=== PATIENT | female | born 1940 | race African-American/Black ===

== ENCOUNTER 2017-07-13 08:24 | Day surgery (SDC) | payer MEDICARE, OTHER ==
[~2017-07-13] VITALS: Ht 165.1 cm; Wt 81.8 kg
[2017-07-13] VITALS (7 sets, daily range): BP systolic 98–142; BP diastolic 52–81; PULSE 60–88; RESP 16–20; TEMP 95.4–98.1; O2SAT 94–97
[~2017-07-13 08:24] MED LIST: ADVAI250I INH; AMLO10 PO; CETI-1; IPRASOL INH; LEVA750T9 PO; MELA5 PO; METO25TA3 PO; MILKSUS PO; RISP0.5T25 PO; SYMB160A INH
[2017-07-13] MEDS ORDERED: IOHEXOL 350 MG/ML 50 ML BTL (for RAD DIAG) G-TUBE ONE (08:25)
[2017-07-13] MEDS ORDERED: ceFAZolin 2 GM PREMIX 50 ML - gastrostomy and jejunostomy initial insertion IV SCH (08:45)
[2017-07-13] MEDS ORDERED: GLUCAGON 1 MG/ML VIAL ONE (09:37)
[2017-07-13] MEDS ORDERED: MIDAZOLAM HCL 2 MG/2 ML VIAL ONE (09:37)
--- NOTE | 2017-07-13 11:08 | RADRPT ---
EXAM DATE/TIME: 07/13/2017 10:50 [facility] COMPARISON: No previous studies available for comparison. INDICATIONS : Patient with history of dysphagia in need of G-tube placement. MEDICAL HISTORY : HTN, Acute renal failure, Diabetes, Sepsis, COPD, Gout, Alzheimers SURGICAL HISTORY : None ENCOUNTER: Initial ACUITY: 3 months PAIN SCORE: 0/10 FLUORO TIME: 3.9 minutes IMAGE SERIES: 1 SEDATION TIME: 30 minutes CONTRAST: 20 cc Omnipaque (iohexol) 350 MEDICATION(S): 1.) 3 mg midazolam (Versed) IV 2.) 150 mcg Fentanyl (Sublimaze) IV 3.) 1 mg glucagon (Gluca-Gen) IV Prophylactic antibiotics were administered with appropriate pre-procedure timing. Vancomycin within 2 hours of procedure, Ancef (or alternative) within 1 hour of procedure. DEVICE(S): 1.) 18 Fr gastrostomy tube PROCEDURE : 1. Limited abdominal ultrasound. 2. Fluoroscopically guided gastrostomy tube placement. 3. Conscious sedation with continuous EKG and oximetry monitoring. The risks, benefits and alternatives to the procedure were explained and verbal and written consent w as obtained. The site was prepped in sterile fashion. Full sterile technique was used, including ca p, mask, sterile gloves and gown and a large sterile sheet. Hand hygiene and 2% chlorhexidine and/or betadine/alcohol prep was utilized per protocol for cutaneous antisepsis. The skin and subcutaneous tissues were infiltrated with local anesthetic solution. Sterile gel and sterile probe cover were u tilized for ultrasound guidance. Ultrasound was used to marty the position of the liver. The stomach was insufflated with room air. Th ree percutaneous fasteners were placed to secure the anterior gastric wall. A small incision was made between the fasteners. The stomach was accessed with an 18 gauge needle. A n 0.035 wire was advanced into the small bowel. The tract was dilated. The gastrostomy tube was int roduced through a peel-away sheath. The position was confirmed with an injection of contrast. Conscious sedation was performed with the prescribed dosages and duration as above in the presence of an independent trained radiology nurse to assist in the monitoring of the patient. EKG and oximetry remained stable throughout the procedure. The patient tolerated the procedure well and there were n o complications. The patient was sent to post anesthesia recovery in stable condition. CONCLUSION: Uncomplicated gastrostomy tube placement as above. Mark Felix MD on July 13, 2017 at 11:03 Board Certified Radiologist. This report was verified electronically.
--- NOTE | 2017-07-13 12:35 | PD.RAD ---
Post Procedure Progress Note Pre Procedure Diagnosis: (1) Dysphagia (2) Dementia Post Procedure Diagnosis: (1) Dysphagia (2) Dementia Procedure Date: Jul 13, 2017 Supervising Radiologist: Mark Felix Proceduralist/Assist: Antwan Lopez RT(R) Estimated blood loss: none Anesthesia: Local, Conscious Sedation Plan of Activity Patient to Unit: ROPU Patient Condition: Good See PACS Report for procedural detail/treatment Feeding Tube Gastrostomy Placement Moldovan: 18 Mark Felix MD Jul 13, 2017 12:35
== END 2017-07-13 13:00 ==
LOC: HROP 08:24 → HRIP 08:24 → HROP 13:00
PROVIDERS: ATTEND Family Medicine
DX: Z43.1 Encounter for attention to gastrostomy (principal); R13.10 Dysphagia, unspecified; F02.80 Dementia in other diseases classified elsewhere, unspecified severity, without behavioral disturbance, psychotic disturbance, mood disturbance, and anxiety; G30.9 Alzheimer's disease, unspecified; I10 Essential (primary) hypertension; J44.9 Chronic obstructive pulmonary disease, unspecified; E11.9 Type 2 diabetes mellitus without complications; Z79.84 Long term (current) use of oral hypoglycemic drugs
CPT/HCPCS: 49440; 99152; 99153; C1769; C1887; J0690; J1610; J2250; J3010; Q9967

== ENCOUNTER 2017-09-05 05:37 | Inpatient (IN) | payer MEDICARE, OTHER ==
[~2017-09-05] VITALS: Ht 172.7 cm; Wt 80.0 kg
[2017-09-05] VITALS (10 sets, daily range): BP systolic 121–144; BP diastolic 62–79; PULSE 87–102; RESP 17–22; TEMP 97.5–98.7; O2SAT 93–99
[~2017-09-05 05:37] MED LIST changes: -ADVAI250I INH; -LEVA750T9 PO
[2017-09-05] MEDS ORDERED: MELO7.5T27 PO (05:54)
[2017-09-05] MEDS ORDERED: AMLO10 PO (05:54)
[2017-09-05] MEDS ORDERED: SYMB160A INH (05:54)
[2017-09-05] MEDS ORDERED: COLL30T TOPICAL (05:54)
[2017-09-05] MEDS ORDERED: MULT-65 PO (05:54)
[2017-09-05] MEDS ORDERED: RESP: ALBUTEROL 2.5 MG/IPRATROPIUM 0.5 MG NEB (SCH) NEB ONE (06:00)
--- NOTE | 2017-09-05 06:33 | RADRPT ---
EXAM DATE/TIME: 09/05/2017 06:00 [facility] COMPARISON: CHEST SINGLE AP, June 23, 2017, 17:25. INDICATIONS : Shortness of breath. MEDICAL HISTORY : HTN, Acute renal failure, Diabetes, Sepsis, COPD, Gout, Alzheimers SURGICAL HISTORY : None. ENCOUNTER: Initial ACUITY: 1 day PAIN SCORE: 0/10 LOCATION: Bilateral chest FINDINGS: A single view of the chest demonstrates no focal consolidation or significant effusion. Heart size wi thin normal limits. Mildly tortuous aorta. CONCLUSION: 1. No acute findings. Resolution of previous right basilar airspace disease. Kevin Fonseca MD on September 05, 2017 at 6:31 Board Certified Radiologist. This report was verified electronically.
[2017-09-05] MEDS ORDERED: SODIUM CHLORIDE 0.9% FLUSH 10 ML FLUSH IVF PRN (07:30)
--- NOTE | 2017-09-05 07:37 | PD ---
HPI . 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 As per EMS, the G-tube was in the patient's bed. Unclear how long the G-tube was not in place. Patient is compos mentis, however she cannot comment on either. Patient does note that she takes breathing treatments regularly and is mildly short of breath and wheezing upon presentation. Patient denies any chest pain, fever chills sweats, productive cough, leg swelling. Patient has no abdominal pain nausea vomiting diarrhea. PFSH Past Medical History Narrative Medical Past medical history reviewed Alzheimer's Disease: Yes Cancer: No Cardiovascular Problems: Yes (HYPERTENSION) Congestive Heart Failure: No COPD: Yes Coronary Artery Disease: No Dementia: Yes Diabetes: Yes Patient Takes Glucophage: No Glaucoma: Yes Gout: Yes Hypertension: Yes Medical other: Yes (GOUT, SEPSIS) Neurologic: Yes (DEMENTIA) Psychiatric: No Reproductive: No Respiratory: Yes (COPD) Immunizations Current: No Tetanus Vaccination: Unknown Influenza Vaccination: Yes ?: Not Past Surgical History AICD: No Eye Surgery: Yes ( RIGHT EYELID) Joint Replacement: No Pacemaker: No Other Surgery: Yes (PEG TUBE) Social History Alcohol Use: No Tobacco Use: No Substance Use: No Allergies-Medications (Allergen,Severity, Reaction): Coded Allergies: No Known Allergies (Unverified Allergy, Unknown, 09/05/17) Reported Meds & Prescriptions Reported Meds & Active Scripts Active Reported Symbicort Inh (Budesonide/Formoterol Fumarate) 160-4.5 Mcg/Act Aero 1 Puff INH Q12HR Santyl Topical (Collagenase) 250 Unit/Gm Oint 1 Applic TOPICAL DAILY As instructed. Norvasc (Amlodipine Besylate) 10 Mg Tab 10 Mg PO DAILY Multi-Vitamin Daily (Multiple Vitamin) 1 Tab Tab 1 Tab PO DAILY Meloxicam 7.5 Mg Tab 7.5 Mg PO DAILY Zyrtec (Cetirizine HCl) 10 Mg Tablet Risperdal (Risperidone) 0.5 Mg Tab 0.5 Mg PO Q12HR Milk of Magnesia Liq (Magnesium Hydroxide) 400 Mg/5 Ml Susp 30 Ml PO DAILY PRN Metoprolol Tartrate 25 Mg Tab 12.5 Mg PO DAILY Melatonin 5 Mg Tab 3 Mg PO HS Duoneb (Ipratropium-Albuterol Neb) 0.5-2.5 Mg/3 Ml Neb 1 Nebule INH Q4HR NEB Narrative Medication Allergies and medications reviewed Review of Systems Except as stated in HPI: all other systems reviewed are Neg General / Constitutional: No: Fever Eyes: No: Visual changes HENT: No: Headaches Cardiovascular: No: Chest Pain or Discomfort Respiratory: Positive: Shortness of Breath, Wheezing, No: Cough, Sneezing, Orthopnea, Hemoptysis, Stridor Gastrointestinal: No: Abdominal Pain Genitourinary: No: Dysuria Musculoskeletal: No: Pain Skin: No Rash Neurologic: No: Weakness Psychiatric: No: Depression Endocrine: No: Polydipsia Hematologic/Lymphatic: No: Easy Bruising Physical Exam Narrative GENERAL: Awake and alert oriented 3 no acute distress. Oxygen saturation 9496 % on room air. SKIN: Warm and dry. Color is normal no diaphoresis cyanosis or pallor HEAD: Atraumatic. Normocephalic. EYES: Pupils equal and round. No scleral icterus. No injection or drainage. ENT: No nasal bleeding or discharge. Mucous membranes pink and moist. NECK: Trachea midline. No JVD. Supple nontender full range of motion CARDIOVASCULAR: Regular rate and rhythm. RESPIRATORY: No accessory muscle use. Clear to auscultation. Breath sounds equal bilaterally. GASTROINTESTINAL: Abdomen soft, non-tender, nondistended. Hepatic and splenic margins not palpable. G-tube stoma evident. No bleeding MUSCULOSKELETAL: Extremities without clubbing, cyanosis, or edema. No obvious deformities. NEUROLOGICAL: Awake and alert. No obvious gross focal deficits PSYCHIATRIC: Appropriate mood and affect; insight and judgment normal. Data Data Last Documented VS Vital Signs Date Time Temp Pulse Resp B/P (MAP) Pulse Ox O2 Delivery O2 Flow Rate FiO2 09/05/17 06:53 94 Nasal Cannula 2.00 09/05/17 05:49 70 22 09/05/17 05:43 98.7 144/79 (100) Orders Orders Albuterol-Ipratropium Neb (Duoneb Neb) (09/05/17 06:00) Chest, Single Ap (09/05/17 ) Complete Blood Count With Diff (09/05/17 07:27) Comprehensive Metabolic Panel (09/05/17 07:27) Troponin I (09/05/17 07:27) Urinalysis - C+S If Indicated (09/05/17 07:27) Electrocardiogram (09/05/17 07:27) Ecg Monitoring (09/05/17 07:27) Oximetry (09/05/17 07:27) Oxygen Administration (09/05/17 07:27) Sodium Chloride 0.9% Flush (Ns Flush) (09/05/17 07:30) MDM Medical Decision Making Medical Screen Exam Complete: Yes Emergency Medical Condition: Yes Medical Record Reviewed: Yes Differential Diagnosis PEG tube traumatically removed. COPD Narrative Course Attempted replacement of PEG tube with 14 Dunham catheter. Stoma is obviously patent. Unable to pass. Patient given albuterol Atrovent nebulized treatment for her usual COPD. patient notes improvement with same. Patient is pending laboratory evaluations. Patient will need to be admitted for observation status consultation from gastroenterology for replacement of PEG tube. Case signed out to oncoming ED attending Dr. Kobi Piña pending laboratory examinations admission. Diagnosis Primary Impression: Malfunction of percutaneous endoscopic gastrostomy (PEG) tube Additional Impression: COPD with exacerbation Admitting Information Admitting Physician Requests: Observation Jose Armando Ramos MD Sep 05, 2017 07:37
[2017-09-05 07:55] LABS: BASOPHIL # 0.1 TH/MM3 (0-0.2); BASOPHIL % 0.8 % (0.0-2.0); EOSINOPHIL # 0.6 TH/MM3 (0-0.4); EOSINOPHIL % 5.1 % (0.0-4.0); HEMATOCRIT 31.5 % (35.0-46.0); HEMOGLOBIN 9.7 GM/DL (11.6-15.3); LYMPH % 13.1 % (9.0-44.0); LYMPHOCYTE # 1.6 TH/MM3 (1.0-4.8); MEAN CELL VOLUME 85.7 FL (80.0-100.0); MEAN CORPUSCULAR HEMOGLOBIN 26.4 PG (27.0-34.0); MEAN CORPUSCULAR HGB CONC 30.8 % (32.0-36.0); MEAN PLATELET VOLUME 8.4 FL (7.0-11.0); MONO % 4.9 % (0.0-8.0); MONOCYTE # 0.6 TH/MM3 (0-0.9); NEUT % 76.1 % (16.0-70.0); PLATELET COUNT 371 TH/MM3 (150-450); RED BLOOD COUNT 3.68 MIL/MM3 (4.00-5.30); RED CELL DISTRIBUTION WIDTH 23.7 % (11.6-17.2); WHITE BLOOD COUNT 11.8 TH/MM3 (4.0-11.0)
[2017-09-05 08:08] LABS: ALBUMIN 2.9 GM/DL (3.4-5.0); AST (GOT) 11 U/L (15-37); BICARBONATE 33.1 MEQ/L (21.0-32.0); BLOOD UREA NITROGEN 38 MG/DL (7-18); CALCIUM 8.9 MG/DL (8.5-10.1); CHLORIDE 103 MEQ/L (98-107); CREATININE 0.97 MG/DL (0.50-1.00); GLOMERULAR FILTRATION RATE 68 ML/MIN (>89); GLUCOSE,RANDOM 118 MG/DL (74-106); SODIUM (NA) 143 MEQ/L (136-145)
[2017-09-05 08:09] LABS: ALT (GPT) 10 U/L (10-53)
[2017-09-05 08:13] LABS: ALKALINE PHOSPHATASE 106 U/L (45-117); TOTAL BILIRUBIN ADULT 0.1 MG/DL (0.2-1.0); TOTAL PROTEIN 7.6 GM/DL (6.4-8.2); TROPONIN I LESS THAN 0.02 NG/ML (0.02-0.05)
[2017-09-05 08:42] LABS: AMORPHOUS SEDIMENT, URINE FEW; BILIRUBIN, URINE NEG (NEG); BLOOD, URINE NEG (NEG); GLUCOSE,URINE NEG (NEG); KETONE, URINE NEG (NEG); NITRITE,URINE NEG (NEG); TRANSITIONAL EPI CELLS, URINE <1 /hpf; URINE COLOR YELLOW (YELLW/STRAW); URINE LEUKOCYTE ESTERASE LARGE (NEG)
--- NOTE | 2017-09-05 08:58 | PD ---
Data Data Last Documented VS Vital Signs Date Time Temp Pulse Resp B/P (MAP) Pulse Ox O2 Delivery O2 Flow Rate FiO2 09/05/17 08:16 92 17 136/62 (86) 95 Nasal Cannula 2.00 09/05/17 05:43 98.7 Orders Orders Albuterol-Ipratropium Neb (Duoneb Neb) (09/05/17 06:00) Chest, Single Ap (09/05/17 ) Complete Blood Count With Diff (09/05/17 07:27) Comprehensive Metabolic Panel (09/05/17 07:27) Troponin I (09/05/17 07:27) Urinalysis - C+S If Indicated (09/05/17 07:27) Electrocardiogram (09/05/17 07:27) Ecg Monitoring (09/05/17 07:27) Oximetry (09/05/17 07:27) Oxygen Administration (09/05/17 07:27) Sodium Chloride 0.9% Flush (Ns Flush) (09/05/17 07:30) Urine Culture (09/05/17 07:59) Admit Order (Ed Use Only) (09/05/17 09:41) Labs Laboratory Tests Test 09/05/17 07:42 09/05/17 07:59 White Blood Count 11.8 TH/MM3 Red Blood Count 3.68 MIL/MM3 Hemoglobin 9.7 GM/DL Hematocrit 31.5 % Mean Corpuscular Volume 85.7 FL Mean Corpuscular Hemoglobin 26.4 PG Mean Corpuscular Hemoglobin Concent 30.8 % Red Cell Distribution Width 23.7 % Platelet Count 371 TH/MM3 Mean Platelet Volume 8.4 FL Neutrophils (%) (Auto) 76.1 % Lymphocytes (%) (Auto) 13.1 % Monocytes (%) (Auto) 4.9 % Eosinophils (%) (Auto) 5.1 % Basophils (%) (Auto) 0.8 % Neutrophils # (Auto) 9.0 TH/MM3 Lymphocytes # (Auto) 1.6 TH/MM3 Monocytes # (Auto) 0.6 TH/MM3 Eosinophils # (Auto) 0.6 TH/MM3 Basophils # (Auto) 0.1 TH/MM3 CBC Comment DIFF FINAL Differential Comment Blood Urea Nitrogen 38 MG/DL Creatinine 0.97 MG/DL Random Glucose 118 MG/DL Total Protein 7.6 GM/DL Albumin 2.9 GM/DL Calcium Level 8.9 MG/DL Alkaline Phosphatase 106 U/L Aspartate Amino Transf (AST/SGOT) 11 U/L Alanine Aminotransferase (ALT/SGPT) 10 U/L Total Bilirubin 0.1 MG/DL Sodium Level 143 MEQ/L Potassium Level 4.5 MEQ/L Chloride Level 103 MEQ/L Carbon Dioxide Level 33.1 MEQ/L Anion Gap 7 MEQ/L Estimat Glomerular Filtration Rate 68 ML/MIN Troponin I LESS THAN 0.02 NG/ML Urine Color YELLOW Urine Turbidity CLEAR Urine pH 8.0 Urine Specific [place] 1.015 Urine Protein TRACE mg/dL Urine Glucose (UA) NEG mg/dL Urine Ketones NEG mg/dL Urine Occult Blood NEG Urine Nitrite NEG Urine Bilirubin NEG Urine Urobilinogen LESS THAN 2.0 MG/DL Urine Leukocyte Esterase LARGE Urine RBC LESS THAN 1 /hpf Urine WBC 12 /hpf Urine Transitional Epithelial Cells <1 /hpf Urine Amorphous Sediment FEW Microscopic Urinalysis Comment CATH-CULTURE IND MDM Medical Record Reviewed: Yes Supervised Visit with KYRA: No Narrative Course CBC & BMP Diagram 09/05/17 07:42 Total Protein 7.6, Albumin 2.9 L, Calcium Level 8.9, Alkaline Phosphatase 106, Aspartate Amino Transf (AST/SGOT) 11 L, Alanine Aminotransferase (ALT/SGPT) 10, Total Bilirubin 0.1 L Urinalysis shows leukocyte esterase and WBCs The gastric tube is not amenable to bedside reinsertion Patient is in no acute distress. Interventional Radiology called at 855AM Case discussed with interventional radiology at about 9:15 AM who is aware of patient and condition, stable, will need Gtube replaced. Bedside attempt at replacement by the undersigned performed fair amount of pressure was applied with 3 nurses in the room helping to restrain the patient who was minimally uncomfortable. About 1-1-1/2 cm or so of the gastric tube was advanced however further advancement was unsuccessful. d/w Dr López at 1043AM Diagnosis Primary Impression: Malfunction of percutaneous endoscopic gastrostomy (PEG) tube Additional Impression: COPD with exacerbation Admitting Information Admitting Physician Requests: Observation Kobi Piña MD Sep 05, 2017 08:58
[2017-09-05] MEDS ORDERED: MIDAZOLAM HCL 2 MG/2 ML VIAL IV ONE (09:43)
[2017-09-05] MEDS ORDERED: IOHEXOL 350 MG/ML 50 ML BTL (for RAD DIAG) G-TUBE ONE (09:43)
[2017-09-05] MEDS: D5-1/2 NS + KCL 20 MEQ INJ 1,000 ML IV SCH ×2 (10:44→20:44)
[2017-09-05] MEDS ORDERED: SENNOSIDES 8.6 MG TAB PO PRN (10:45)
[2017-09-05] MEDS ORDERED: BISACODYL 10 MG SUPP RECTAL PRN (10:45)
[2017-09-05] MEDS ORDERED: SODIUM CHLORIDE 0.9% FLUSH 10 ML FLUSH IV FLUSH PRN (10:45)
[2017-09-05] MEDS ORDERED: MAGNESIUM HYDROXIDE SUSP 30 ML CUP PO PRN (10:45)
[2017-09-05] MEDS ORDERED: ONDANSETRON HCL 4 MG/2 ML VIAL IVP PRN (10:45)
[2017-09-05] MEDS ORDERED: NALOXONE HCL 0.4 MG/ML AMP IV PUSH PRN (10:45)
[2017-09-05] MEDS ORDERED: LACTULOSE SYRUP 20 GM/30 ML CUP PO PRN (10:45)
[2017-09-05] MEDS ORDERED: PILL SPLITTER OTHER PRN (11:30)
--- NOTE | 2017-09-05 11:42 | PD.CONS ---
HPI History of Present Illness This is a 77 year old female with dementia who presented from [facility] for dislodged G tube. Attempt was made to replace tube in ER but resistance was met, per records. SEarch of records shows g tube was placed by IR 06/2017. pt relatively noncontributory other than to say tube was removed "with my hands." She denies abd pain, seems comfortable. (Jael Duong) PFSH Past Medical History dementia HTN COPD Past Surgical History right eye surgery g tube placement (Jael Duong) Coded Allergies: No Known Allergies (Unverified Allergy, Unknown, 09/05/17) Family History noncontributory Social History noncontributory (Jael Duong) Review of Systems noncontributory (Jael Duong) GI Exam Vitals I&O Vital Signs Date Time Temp Pulse Resp B/P (MAP) Pulse Ox O2 Delivery O2 Flow Rate FiO2 09/05/17 11:37 96 17 127/62 (83) 95 Nasal Cannula 2.00 09/05/17 10:07 96 18 127/62 (83) 97 Nasal Cannula 2.00 09/05/17 08:16 92 17 136/62 (86) 95 Nasal Cannula 2.00 09/05/17 08:16 98 17 95 Nasal Cannula 2.00 09/05/17 07:31 98 17 136/62 (86) 96 Nasal Cannula 2.00 09/05/17 07:31 96 Nasal Cannula 2.00 09/05/17 06:53 94 Nasal Cannula 2.00 09/05/17 05:49 70 22 93 Room Air 09/05/17 05:43 98.7 101 22 144/79 (100) 93 Imaging Last Impressions Chest X-Ray 09/05/17 0000 Signed Impressions: Service Date/Time: Tuesday, September 05, 2017 06:00 - CONCLUSION: 1. No acute findings. Resolution of previous right basilar airspace disease. Kevin Fonseca MD Laboratory Test 09/05/17 07:42 09/05/17 07:59 White Blood Count 11.8 TH/MM3 Red Blood Count 3.68 MIL/MM3 Hemoglobin 9.7 GM/DL Hematocrit 31.5 % Mean Corpuscular Volume 85.7 FL Mean Corpuscular Hemoglobin 26.4 PG Mean Corpuscular Hemoglobin Concent 30.8 % Red Cell Distribution Width 23.7 % Platelet Count 371 TH/MM3 Mean Platelet Volume 8.4 FL Neutrophils (%) (Auto) 76.1 % Lymphocytes (%) (Auto) 13.1 % Monocytes (%) (Auto) 4.9 % Eosinophils (%) (Auto) 5.1 % Basophils (%) (Auto) 0.8 % Neutrophils # (Auto) 9.0 TH/MM3 Lymphocytes # (Auto) 1.6 TH/MM3 Monocytes # (Auto) 0.6 TH/MM3 Eosinophils # (Auto) 0.6 TH/MM3 Basophils # (Auto) 0.1 TH/MM3 CBC Comment DIFF FINAL Differential Comment Blood Urea Nitrogen 38 MG/DL Creatinine 0.97 MG/DL Random Glucose 118 MG/DL Total Protein 7.6 GM/DL Albumin 2.9 GM/DL Calcium Level 8.9 MG/DL Alkaline Phosphatase 106 U/L Aspartate Amino Transf (AST/SGOT) 11 U/L Alanine Aminotransferase (ALT/SGPT) 10 U/L Total Bilirubin 0.1 MG/DL Sodium Level 143 MEQ/L Potassium Level 4.5 MEQ/L Chloride Level 103 MEQ/L Carbon Dioxide Level 33.1 MEQ/L Anion Gap 7 MEQ/L Estimat Glomerular Filtration Rate 68 ML/MIN Troponin I LESS THAN 0.02 NG/ML Urine Color YELLOW Urine Turbidity CLEAR Urine pH 8.0 Urine Specific [place] 1.015 Urine Protein TRACE mg/dL Urine Glucose (UA) NEG mg/dL Urine Ketones NEG mg/dL Urine Occult Blood NEG Urine Nitrite NEG Urine Bilirubin NEG Urine Urobilinogen LESS THAN 2.0 MG/DL Urine Leukocyte Esterase LARGE Urine RBC LESS THAN 1 /hpf Urine WBC 12 /hpf Urine Transitional Epithelial Cells <1 /hpf Urine Amorphous Sediment FEW Microscopic Urinalysis Comment CATH-CULTURE IND Date/Time Source Procedure Growth Status 09/05/17 07:59 Urine Clean Catch Urine Culture Pending Received Physical Examination HEENT: right eyelid stuck shut, left pupil dilated; normocephalic; atraumatic; CHEST: coarse CARDIAC: RRR ABDOMEN: Soft, nondistended, nontender; no hepatosplenomegaly; bowel sounds are present in all four quadrants. g tube site with small amt blood EXTREMITIES: No clubbing, cyanosis, or edema. SKIN: Normal; no rash; no jaundice. PUTTY MAKER: alert, nonverbal (Jael Duong) Assessment and Plan Plan ASSESSMENT - dysphagia, dislodged g tube - [facility] , appears she may have pulled it out. no further details records show IR placed g tube 06/2017 PLAN - consult IR for g tube replacement - supportive care - GI will sign off, please reconsult if needed pt seen by myself and Dr Maddison reynaga this note is written on her behalf (Jael Duong) Physician Comments seen, examined agree with above consider speech therapy eval-she is eating also but not enough to support her calorie demands gi will sign off call us as needed (Emily Jackson MD) Jael Duong Sep 05, 2017 11:42 Emily Jackson MD Sep 05, 2017 16:46
[2017-09-05] MEDS ORDERED: HEPARIN SODIUM - SQ 10,000 UNITS/ML VIAL SQ SCH (12:00)
[2017-09-05] MEDS: RESP: ALBUTEROL 2.5 MG/IPRATROPIUM 0.5 MG NEB (SCH) INH ×4 (13:07→23:06)
--- NOTE | 2017-09-05 13:53 | HHI.HP ---
[facility] Noman Yu MD Admission Diagnosis GTube Dislodged Diagnoses: Travel History International Travel<30 Days: No Contact w/Intl Traveler <30 Da: No Traveled to Known Affected Are: No History of Present Illness Patient is a pleasant but severely demented 77-year-old female with history of hypertension, COPD, dysphagia, status post PEG tube placement who was found to have PEG tube accidentally removed overnight. Unable to be placed in the ER. History is limited by severe dementia. Patient appears comfortable, speaks pleasantly, smiles, however her answers have absolutely nothing to do with questions. Review of Systems Attempted but severely limited secondary to severe dementia. Past Family Social History Past Medical History Hypertension Sleep disturbance Allergies COPD Severe dementia Gout History of UTI. Past Surgical History PEG tube placement June 2017 [place]ary 2 dysphagia. Right eyelid surgery Reported Medications Reported Meds & Active Scripts Active Reported Symbicort Inh (Budesonide/Formoterol Fumarate) 160-4.5 Mcg/Act Aero 1 Puff INH Q12HR Santyl Topical (Collagenase) 250 Unit/Gm Oint 1 Applic TOPICAL DAILY As instructed. Norvasc (Amlodipine Besylate) 10 Mg Tab 10 Mg PO DAILY Multi-Vitamin Daily (Multiple Vitamin) 1 Tab Tab 1 Tab PO DAILY Meloxicam 7.5 Mg Tab 7.5 Mg PO DAILY Zyrtec (Cetirizine HCl) 10 Mg Tablet Risperdal (Risperidone) 0.5 Mg Tab 0.5 Mg PO Q12HR Milk of Magnesia Liq (Magnesium Hydroxide) 400 Mg/5 Ml Susp 30 Ml PO DAILY PRN Metoprolol Tartrate 25 Mg Tab 12.5 Mg PO DAILY Melatonin 5 Mg Tab 3 Mg PO HS Duoneb (Ipratropium-Albuterol Neb) 0.5-2.5 Mg/3 Ml Neb 1 Nebule INH Q4HR NEB Allergies: Coded Allergies: No Known Allergies (Unverified Allergy, Unknown, 09/05/17) Family History Attempted, but patient is unable to answer family history. Social History Patient appears to be a current non-smoker, nondrinker. Unknown past history. Current [facility] patient. Physical Exam Vital Signs Vital Signs Date Time Temp Pulse Resp B/P (MAP) Pulse Ox O2 Delivery O2 Flow Rate FiO2 09/05/17 11:52 97.5 88 18 142/68 (92) 97 09/05/17 11:37 96 17 127/62 (83) 95 Nasal Cannula 2.00 09/05/17 10:07 96 18 127/62 (83) 97 Nasal Cannula 2.00 09/05/17 08:16 92 17 136/62 (86) 95 Nasal Cannula 2.00 09/05/17 08:16 98 17 95 Nasal Cannula 2.00 09/05/17 07:31 98 17 136/62 (86) 96 Nasal Cannula 2.00 09/05/17 07:31 96 Nasal Cannula 2.00 09/05/17 06:53 94 Nasal Cannula 2.00 09/05/17 05:49 70 22 93 Room Air 09/05/17 05:43 98.7 101 22 144/79 (100) 93 Physical Exam GENERAL: This is a well-nourished, well-developed patient, in no apparent distress. Pleasant, disoriented. SKIN: No rashes, ecchymoses or lesions. Cool and dry. HEAD: Atraumatic. Normocephalic. No temporal or scalp tenderness. EYES: Pupils equal round and reactive. Extraocular motions intact. No scleral icterus. No injection or drainage. ENT: Nose without bleeding, purulent drainage or septal hematoma. Throat without erythema, tonsillar hypertrophy or exudate. Uvula midline. Airway patent. NECK: Trachea midline. No JVD or lymphadenopathy. Supple, nontender, no meningeal signs. CARDIOVASCULAR: Regular rate and rhythm without murmurs, gallops, or rubs. RESPIRATORY: Clear to auscultation. Breath sounds equal bilaterally. No wheezes , rales, or rhonchi. GASTROINTESTINAL: Abdomen soft, non-tender, nondistended. No hepato-splenomegaly , or palpable masses. No guarding. PEG tube site left upper quadrant with slight serous drainage. No surrounding erythema. No pus. MUSCULOSKELETAL: Extremities without clubbing, cyanosis, or edema. No joint tenderness, effusion, or edema noted. No calf tenderness. Negative Homans sign bilaterally. NEUROLOGICAL: Awake and alert. Cranial nerves II through XII intact. Motor and sensory grossly within normal limits. Five out of 5 muscle strength in all muscle groups. Normal speech. Laboratory Laboratory Tests Test 09/05/17 07:42 09/05/17 07:59 White Blood Count 11.8 Red Blood Count 3.68 Hemoglobin 9.7 Hematocrit 31.5 Mean Corpuscular Volume 85.7 Mean Corpuscular Hemoglobin 26.4 Mean Corpuscular Hemoglobin Concent 30.8 Red Cell Distribution Width 23.7 Platelet Count 371 Mean Platelet Volume 8.4 Neutrophils (%) (Auto) 76.1 Lymphocytes (%) (Auto) 13.1 Monocytes (%) (Auto) 4.9 Eosinophils (%) (Auto) 5.1 Basophils (%) (Auto) 0.8 Neutrophils # (Auto) 9.0 Lymphocytes # (Auto) 1.6 Monocytes # (Auto) 0.6 Eosinophils # (Auto) 0.6 Basophils # (Auto) 0.1 CBC Comment DIFF FINAL Differential Comment Blood Urea Nitrogen 38 Creatinine 0.97 Random Glucose 118 Total Protein 7.6 Albumin 2.9 Calcium Level 8.9 Alkaline Phosphatase 106 Aspartate Amino Transf (AST/SGOT) 11 Alanine Aminotransferase (ALT/SGPT) 10 Total Bilirubin 0.1 Sodium Level 143 Potassium Level 4.5 Chloride Level 103 Carbon Dioxide Level 33.1 Anion Gap 7 Estimat Glomerular Filtration Rate 68 Troponin I LESS THAN 0.02 Urine Color YELLOW Urine Turbidity CLEAR Urine pH 8.0 Urine Specific [place] 1.015 Urine Protein TRACE Urine Glucose (UA) NEG Urine Ketones NEG Urine Occult Blood NEG Urine Nitrite NEG Urine Bilirubin NEG Urine Urobilinogen LESS THAN 2.0 Urine Leukocyte Esterase LARGE Urine RBC LESS THAN 1 Urine WBC 12 Urine Transitional Epithelial Cells <1 Urine Amorphous Sediment FEW Microscopic Urinalysis Comment CATH-CULTURE IND Date/Time Source Procedure Growth Status 09/05/17 07:59 Urine Clean Catch Urine Culture Pending Received Result Diagram: 09/05/17 0742 09/05/17 0742 Imaging Last Impressions Chest X-Ray 09/05/17 0000 Signed Impressions: Service Date/Time: Tuesday, September 05, 2017 06:00 - CONCLUSION: 1. No acute findings. Resolution of previous right basilar airspace disease. MD Elle Harris VTE Risk Assessment Caprini VTE Risk Assessment: Mod/High Risk (score >= 2) Caprini Risk Assessment Model Point Value = 1 Point Value = 2 Point Value = 3 Point Value = 5 Age 41-60 Minor surgery BMI > 25 kg/m2 Swollen legs Varicose veins or History of unexplained or recurrent spontaneous Oral contraceptives or hormone replacement Sepsis (< 1 month) Serious lung disease, including pneumonia (< 1 month) Abnormal pulmonary function Acute myocardial infarction Congestive heart failure (< 1 month) History of inflammatory bowel disease Medical patient at bed rest Age 61-74 Arthroscopic surgery Major open surgery (> 45 min) Laparoscopic surgery (> 45 min) Malignancy Confined to bed (> 72 hours) Immobilizing plaster cast Central venous access Age >= 75 History of VTE Family history of VTE Factor V Leiden Prothrombin 50301T Lupus anticoagulant Anticardiolipin antibodies Elevated serum homocysteine Heparin-induced thrombocytopenia Other congenital or acquired thrombophilia Stroke (< 1 month) Elective arthroplasty Hip, pelvis, or leg fracture Acute spinal cord injury (< 1 month) Prophylaxis Regimen Total Risk Factor Score Risk Level Prophylaxis Regimen 0-1 Low Early ambulation 2 Moderate Order ONE of the following: *Sequential Compression Device (SCD) *Heparin 5000 units SQ BID 3-4 Higher Order ONE of the following medications: *Heparin 5000 units SQ TID *Enoxaparin/Lovenox 40 mg SQ daily (WT < 150 kg, CrCl > 30 mL/min) *Enoxaparin/Lovenox 30 mg SQ daily (WT < 150 kg, CrCl > 10-29 mL/min) *Enoxaparin/Lovenox 30 mg SQ BID (WT < 150 kg, CrCl > 30 mL/min) AND/OR *Sequential Compression Device (SCD) 5 or more Highest Order ONE of the following medications: *Heparin 5000 units SQ TID (Preferred with Epidurals) *Enoxaparin/Lovenox 40 mg SQ daily (WT < 150 kg, CrCl > 30 mL/min) *Enoxaparin/Lovenox 30 mg SQ daily (WT < 150 kg, CrCl > 10-29 mL/min) *Enoxaparin/Lovenox 30 mg SQ BID (WT < 150 kg, CrCl > 30 mL/min) AND *Sequential Compression Device (SCD) Assessment and Plan Assessment and Plan //Dysphagia //PEG tube having been inadvertently removed = IV fluids for now. = P.o. meds for now. = Consult IR for replacement. //COPD = Continue duo nebs as needed. Not in acute exacerbation //Hypertension = Blood pressure acceptable. Will hold off on amlodipine currently. // glaucoma = Continue eyedrops //Chronic anemia. Hemoglobin 9.7. Better than baseline. Dementia. -Appears to be stable. Continue chronic medications. Discussed Condition With nurse, ED physician Samy López MD Sep 05, 2017 13:53
[2017-09-05] MEDS: BUDESONIDE-FORMOTEROL 160/4.5 MCG INHALER INH SCH (21:00)
[2017-09-05] MEDS: SODIUM CHLORIDE 0.9% FLUSH 10 ML FLUSH IV FLUSH SCH (21:00)
[2017-09-05] MEDS: risperiDONE 0.5 MG TAB PO SCH (21:00)
[2017-09-05] MEDS: MELATONIN 5 MG TAB PO SCH (21:57)
[2017-09-05] MEDS: METOPROLOL TARTRATE 25 MG TAB PO SCH (21:57)
[2017-09-06] VITALS (10 sets, daily range): BP systolic 121–155; BP diastolic 60–71; PULSE 88–97; RESP 16–20; TEMP 97.4–98.9; O2SAT 92–99
[2017-09-06] MEDS: RESP: ALBUTEROL 2.5 MG/IPRATROPIUM 0.5 MG NEB (SCH) INH ×5 (03:52→21:36)
[2017-09-06 04:04] LABS: AUTOMATED NEUTROPHIL # 7.1 TH/MM3 (1.8-7.7); BASOPHIL # 0.1 TH/MM3 (0-0.2); BASOPHIL % 1.3 % (0.0-2.0); EOSINOPHIL # 0.7 TH/MM3 (0-0.4); EOSINOPHIL % 6.8 % (0.0-4.0); HEMATOCRIT 30.9 % (35.0-46.0); HEMOGLOBIN 9.7 GM/DL (11.6-15.3); LYMPH % 19.2 % (9.0-44.0); MEAN CELL VOLUME 86.1 FL (80.0-100.0); MEAN CORPUSCULAR HEMOGLOBIN 26.9 PG (27.0-34.0); MEAN CORPUSCULAR HGB CONC 31.3 % (32.0-36.0); MEAN PLATELET VOLUME 8.6 FL (7.0-11.0); MONO % 5.4 % (0.0-8.0); MONOCYTE # 0.6 TH/MM3 (0-0.9); NEUT % 67.3 % (16.0-70.0); PLATELET COUNT 381 TH/MM3 (150-450); RED BLOOD COUNT 3.59 MIL/MM3 (4.00-5.30); RED CELL DISTRIBUTION WIDTH 23.5 % (11.6-17.2); WHITE BLOOD COUNT 10.6 TH/MM3 (4.0-11.0)
[2017-09-06 04:33] LABS: AST (GOT) 14 U/L (15-37); BICARBONATE 32.9 MEQ/L (21.0-32.0); BLOOD UREA NITROGEN 30 MG/DL (7-18); CALCIUM 8.9 MG/DL (8.5-10.1); CHLORIDE 103 MEQ/L (98-107); CREATININE 1.03 MG/DL (0.50-1.00); GLOMERULAR FILTRATION RATE 63 ML/MIN (>89); GLUCOSE,RANDOM 99 MG/DL (74-106); SODIUM (NA) 142 MEQ/L (136-145)
[2017-09-06 04:34] LABS: ALT (GPT) 10 U/L (10-53)
[2017-09-06 04:36] LABS: ALKALINE PHOSPHATASE 104 U/L (45-117); TOTAL BILIRUBIN ADULT 0.2 MG/DL (0.2-1.0); TOTAL PROTEIN 7.7 GM/DL (6.4-8.2)
[2017-09-06] MEDS: risperiDONE 0.5 MG TAB PO SCH ×2 (09:00→20:36)
[2017-09-06] MEDS: SODIUM CHLORIDE 0.9% FLUSH 10 ML FLUSH IV FLUSH SCH ×2 (09:00→21:00)
[2017-09-06] MEDS: METOPROLOL TARTRATE 25 MG TAB PO SCH ×2 (09:00→20:34)
[2017-09-06] MEDS ORDERED: RESP: ALBUTEROL 2.5 MG/IPRATROPIUM 0.5 MG NEB (SCH) NEB ONE (09:15)
--- NOTE | 2017-09-06 09:20 | HHI.PR ---
Subjective Remarks Patient indicates that she is feeling all right today. Otherwise answers are irrelevant to questions. Objective Vital Signs Date Time Temp Pulse Resp B/P (MAP) Pulse Ox O2 Delivery O2 Flow Rate FiO2 09/06/17 07:37 98.7 94 18 155/70 (98) 95 09/06/17 03:49 98.9 97 20 121/60 (80) 96 09/05/17 23:12 98.6 87 20 121/64 (83) 94 09/05/17 19:23 97.6 102 20 139/74 (95) 99 09/05/17 15:51 98.0 91 18 141/73 (95) 98 09/05/17 11:52 97.5 88 18 142/68 (92) 97 09/05/17 11:37 96 17 127/62 (83) 95 Nasal Cannula 2.00 09/05/17 10:07 96 18 127/62 (83) 97 Nasal Cannula 2.00 I/O 09/05/17 09/05/17 09/05/17 09/06/17 09/06/17 09/06/17 07:00 15:00 23:00 07:00 15:00 23:00 # Voids 3 1 # Bowel Movements 1 Result Diagram: 09/06/17 0326 09/06/17 0326 Objective Remarks GENERAL: Patient sitting up in bed. Appears comfortable. Confused as before. Pleasant however. SKIN: Warm and dry. HEAD: Normocephalic. EYES: No scleral icterus. No injection or drainage. NECK: Supple, trachea midline. No JVD. CARDIOVASCULAR: Regular rate and rhythm without murmurs, gallops, or rubs. RESPIRATORY: Breath sounds equal bilaterally. No accessory muscle use. GASTROINTESTINAL: Abdomen soft, non-tender, nondistended. PEG tube site dressed , clean and dry. MUSCULOSKELETAL: No cyanosis, or edema. BACK: Nontender without obvious deformity. No CVA tenderness. A/P Assessment and Plan //Dysphagia //PEG tube having been inadvertently removed = IV fluids for now. = P.o. meds for now. = Consult IR for replacement. = 09/06. Pending INR. Appreciate IR assistance. //Some rhonchi and crackles. -09/06. This could be just morning atelectasis, however due to history of aspiration will check stat x-ray. Patient is only been receiving pills by mouth. N.p.o. for now. BNP ordered and pending //COPD = Continue duo nebs as needed. Not in acute exacerbation //Hypertension = Blood pressure acceptable. Will hold off on amlodipine currently. // glaucoma = Continue eyedrops //Chronic anemia. Hemoglobin 9.7. Better than baseline. Dementia. -Appears to be stable. Continue chronic medications. Discharge Planning PEG tube placement today. After this, if chest x-ray is okay, patient can be discharged back to SNF. Samy López MD Sep 06, 2017 09:19
--- NOTE | 2017-09-06 09:32 | RADRPT ---
EXAM DATE/TIME: 09/06/2017 09:22 [facility] COMPARISON: CHEST SINGLE AP, September 05, 2017, 6:00. INDICATIONS : Congestion. MEDICAL HISTORY : HTN, Acute renal failure, Diabetes, Sepsis, COPD, Gout, Alzheimers SURGICAL HISTORY : None. ENCOUNTER: Subsequent ACUITY: 2 days PAIN SCORE: Non-responsive. LOCATION: Bilateral chest FINDINGS: A single view of the chest demonstrates the lungs to be symmetrically aerated without evidence of mas s, infiltrate or effusion. The cardiomediastinal contours are unremarkable. Osseous structures are intact. CONCLUSION: 1. Poor visualization of lung bases due to the degree of hypoinflation. Otherwise, unremarkable exam. Delroy Pool Jr., MD on September 06, 2017 at 9:29 Board Certified Radiologist. This report was verified electronically.
[2017-09-06] MEDS: RESP: ALBUTEROL 2.5 MG/IPRATROPIUM 0.5 MG NEB (SCH) NEB ×3 (10:00→22:00)
[2017-09-06] MEDS: D5-1/2 NS + KCL 20 MEQ INJ 1,000 ML IV SCH ×3 (10:05→23:14)
[2017-09-06 11:28] LABS: PROTHROMBIN TIME - PATIENT 10.3 SEC (9.8-11.6)
[2017-09-06] MEDS: BUDESONIDE-FORMOTEROL 160/4.5 MCG INHALER INH SCH ×2 (11:55→23:08)
[2017-09-06] MEDS: COLLAGENASE OINT 30 GM TUBE TOPICAL SCH (11:56)
--- NOTE | 2017-09-06 14:36 | PD.RAD ---
Post Procedure Progress Note Pre Procedure Diagnosis: (1) Malfunction of percutaneous endoscopic gastrostomy (PEG) tube Post Procedure Diagnosis: (1) Malfunction of percutaneous endoscopic gastrostomy (PEG) tube Procedure Date: Sep 06, 2017 Supervising Radiologist: Forrest Horvath Proceduralist/Assist: Antwan Lopez, RT(R), Maggie Chavez RT(R)(CV) Anesthesia: Local, Conscious Sedation Plan of Activity Patient to Unit: ROPU Patient Condition: Good See PACS Report for procedural detail/treatment Forrest Horvath MD Sep 06, 2017 14:36
--- NOTE | 2017-09-06 15:09 | RADRPT ---
EXAM DATE/TIME: 09/06/2017 15:12 [facility] COMPARISON: No previous studies available for comparison. INDICATIONS : Patient presents with dislodged gastrostomy tube in need of placement for nutrition. MEDICAL HISTORY : Hypertension Sleep disturbance Allergies COPD Severe dementia Gout History of UTI. SURGICAL HISTORY : PEG tube placement June 2017 [place] 2 dysphagia. Right eyelid surgery ENCOUNTER: Initial ACUITY: 2 days PAIN SCORE: Nonresponsive. LOCATION: N/A FLUORO TIME: 1.8 minutes IMAGE SERIES: 0 SEDATION TIME: 10 minutes CONTRAST: 15 cc Omnipaque (iohexol) 350 MEDICATION(S): 1.) 1 mg midazolam (Versed) IV 2.) 50 mcg Fentanyl (Sublimaze) IV DEVICE(S): 1.) 18 Fr gastrostomy tube PROCEDURE : 1. Fluoroscopically guided gastrostomy tube placement. 2. Conscious sedation with continuous EKG and oximetry monitoring. The risks, benefits and alternatives to the procedure were explained and verbal and written consent w as obtained. The site was prepped in sterile fashion. Full sterile technique was used, including ca p, mask, sterile gloves and gown and a large sterile sheet. Hand hygiene and 2% chlorhexidine and/or betadine/alcohol prep was utilized per protocol for cutaneous antisepsis. The skin and subcutaneous tissues were infiltrated with local anesthetic solution. 4 Kyrgyz dilator was advanced to the existing gastrostomy tract and position was confirmed with contr ast injection. The tract was dilated. The gastrostomy tube was introduced through a peel-away sheath . The position was confirmed with an injection of contrast. Conscious sedation was performed with the prescribed dosages and duration as above in the presence of an independent trained radiology nurse to assist in the monitoring of the patient. EKG and oximetry remained stable throughout the procedure. The patient tolerated the procedure well and there were n o complications. The patient was sent to post anesthesia recovery in stable condition. CONCLUSION: Uncomplicated gastrostomy tube placement through existing gastrostomy tract, as above. Forrest Horvath MD on September 06, 2017 at 15:07 Board Certified Radiologist. This report was verified electronically.
[2017-09-06 16:55] LABS: HEMOGLOBIN A1C 6.4 % (4.3-6.0)
[2017-09-06] MEDS: BENEPROTEIN POWDER 1 PACK G-TUBE SCH (18:00)
[2017-09-06] MEDS: MELATONIN 5 MG TAB PO SCH (20:36)
--- NOTE | 2017-09-06 23:14 | EKG ---
Date Performed: 09/05/2017 Time Performed: 08:06:43 PTAGE: 77 years EKG: SINUS TACHYCARDIA ANTEROSEPTAL MYOCARDIAL INFARCTION ABNORMAL ECG PREVIOUS TRACING : 06/23/2017 19.26 DOCTOR: Obey Pate Interpretating Date/Time 09/06/2017 23:02:11
[2017-09-06] MEDS ORDERED: RESP: ALBUTEROL 2.5 MG/IPRATROPIUM 0.5 MG NEB (PRN) INH (23:45)
[2017-09-07] VITALS (12 sets, daily range): BP systolic 120–158; BP diastolic 61–88; PULSE 62–98; RESP 16–21; TEMP 98.1–98.8; O2SAT 90–98
[2017-09-07] MEDS: RESP: ALBUTEROL 2.5 MG/IPRATROPIUM 0.5 MG NEB (SCH) NEB ×4 (04:05→20:31)
[2017-09-07] MEDS ORDERED: methylPREDNISolone SOD SUCC 125 MG/2 ML VIAL IV PUSH ONE (06:15)
--- NOTE | 2017-09-07 08:14 | HHI.PR ---
Subjective Remarks Follow up for PEG dislodgment. The patient had PEG replaced by IR yesterday, however nurses reporting unable to pass any liquids through PEG, with significant reflux. RN contacting IR this morning for repeat evaluation of PEG. The patient reports significant nonproductive cough that just started over the past few days. She denies any shortness of breath or chest pains. Denies fevers/ chills. Denies any nasal congestion, rhinitis, or sore throat. She has no other medical complaints at this time. Objective Vitals Vital Signs Date Time Temp Pulse Resp B/P (MAP) Pulse Ox O2 Delivery O2 Flow Rate FiO2 09/07/17 07:43 98.5 90 18 142/61 (88) 98 09/07/17 07:29 98 Nasal Cannula 2.00 09/07/17 06:30 97 09/07/17 05:50 92 Nasal Cannula 2.00 09/07/17 05:40 20 90 09/07/17 05:00 98.4 82 16 127/88 (101) 97 09/07/17 01:07 98.1 62 18 141/68 (92) 98 09/06/17 21:40 92 21 09/06/17 21:07 98.0 88 18 139/65 (89) 94 09/06/17 15:45 88 16 128/67 (87) 98 09/06/17 15:30 89 16 136/67 (90) 99 09/06/17 15:15 91 16 134/69 (90) 98 09/06/17 15:00 88 16 129/70 (89) 98 09/06/17 14:40 97.4 93 16 122/71 (88) 97 09/06/17 12:09 97.6 89 18 145/68 (93) 98 I/O 09/06/17 09/06/17 09/06/17 09/07/17 09/07/17 09/07/17 07:00 15:00 23:00 07:00 15:00 23:00 Intake Total 1000 ml Balance 1000 ml Intake IV Total 1000 ml # Voids 2 1 # Bowel Movements 1 Result Diagram: 09/06/17 0326 09/06/17 0326 Imaging Last Impressions Gastrostomy Tube Placement 09/06/17 0000 Signed Impressions: Service Date/Time: Wednesday, September 06, 2017 15:12 - CONCLUSION: Uncomplicated gastrostomy tube placement through existing gastrostomy tract, as above. Forrest Horvath MD Chest X-Ray 09/06/17 0000 Signed Impressions: Service Date/Time: Wednesday, September 06, 2017 09:22 - CONCLUSION: 1. Poor visualization of lung bases due to the degree of hypoinflation. Otherwise, unremarkable exam. Delroy Pool Jr., MD Objective Remarks GENERAL: Well-nourished, well-developed pleasantly confused elderly female patient in NAD. SKIN: Warm and dry. No rash. HEENT: Normocephalic. Atraumatic. Pupils equal and round. Mucous membranes pink and moist. CARDIOVASCULAR: Regular rate and rhythm. S1, S2 noted. No murmur appreciated. RESPIRATORY: No accessory muscle use. Diffuse scattered rhonchi throughout all lung shepherd with occasional expiratory wheeze. Breath sounds equal bilaterally. GASTROINTESTINAL: Abdomen soft, non-tender, nondistended. Normoactive bowel sounds x4. PEG at left abdominal wall, no surrounding erythema/edema. MUSCULOSKELETAL: No obvious deformities. Extremities without clubbing, cyanosis , or edema. NEUROLOGICAL: Awake and alert. No obvious cranial nerve deficits. Motor grossly within normal limits. Normal speech. PSYCHIATRIC: Appropriate mood and affect; insight and judgment limited. Procedures 09/06-PEG tube replacement by IR Medications and IVs Current Medications Medications (Trade) Dose Ordered Sig/Misa Route Start Time Stop Time Status Last Admin Potassium Chloride/Dextrose/ Sod Cl 1,000 ml @ 100 mls/hr Q10H IV 09/05/17 10:44 09/06/17 23:14 (NS Flush) 2 ml UNSCH PRN IV FLUSH 09/05/17 10:45 (NS Flush) 2 ml BID IV FLUSH 09/05/17 21:00 (Zofran Inj) 4 mg Q6H PRN IVP 09/05/17 10:45 (Narcan Inj) 0.4 mg UNSCH PRN IV PUSH 09/05/17 10:45 (Milk Of Magnesia Liq) 30 ml Q12H PRN PO 09/05/17 10:45 (Senokot) 17.2 mg Q12H PRN PO 09/05/17 10:45 (Dulcolax Supp) 10 mg DAILY PRN RECTAL 09/05/17 10:45 (Lactulose Liq) 30 ml DAILY PRN PO 09/05/17 10:45 (Symbicort 160-4.5 Mcg Inh) 1 puff Q12HR INH 09/05/17 21:00 09/06/17 23:08 (Santyl Oint) 1 applic DAILY TOPICAL 09/06/17 09:00 09/06/17 11:56 (Melatonin) 2.5 mg HS PO 09/05/17 21:00 09/05/17 21:57 (risperDAL) 0.5 mg Q12HR PO 09/05/17 21:00 09/05/17 21:00 (Pill Splitter) 1 ea UNSCH PRN OTHER 09/05/17 11:30 (Lopressor) 12.5 mg Q12HR PO 09/05/17 21:00 09/05/17 21:57 (Duoneb Neb) 1 ampule Q6HR NEB NEB 09/06/17 10:00 09/07/17 07:28 (Beneprotein Powder) 1 pack TID G-TUBE 09/06/17 18:00 (Duoneb Neb) 1 ampule Q4HR NEB PRN INH 09/06/17 23:45 09/07/17 05:49 A/P Assessment and Plan Patient is a pleasant but severely demented 77-year-old female with history of hypertension, COPD, dysphagia, status post PEG tube placement who was found to have PEG tube accidentally removed overnight, sent from SNF. Dysphagia with PEG tube accidental dislodgment: -IR consulted, replaced PEG on 09/06 -RN reporting tube not functioning, IR to re-evaluate tube today -Continue IVF for now -Swallow eval by ST and dial polisher consult ordered COPD Exacerbation: patient with diffuse rhonchi on exam, +nonproductive cough. -CXR on 09/05 and 09/06 reviewed, no acute findings -BNP 10, unlikely CHF/fluid overload -Continue patient's symbicort bid -S/p IV Solumedrol 125mg x1 -Continue steroids with IV Solumedrol 40mg q6h -Continue duonebs q6h misa and q4h prn -Repeat CXR, high concern for aspiration pneumonia, lungs with diffuse rhonchi -1400hrs: CXR showed LLL infiltrate, will start patient on IV Zosyn for aspiration pneumonia Hypertension -Blood pressure acceptable. -Continue patient's metoprolol and amlodipine Glaucoma -Continue patient's eyedrops Chronic anemia: Hemoglobin 9.7. Better than baseline. -monitor Dementia. -Appears to be stable. Continue chronic medications. DVT Prophylaxis: SCDs Discharge Planning Discharge hopefully tomorrow. PEG tube still not working and patient with acute COPD exacerbation. Cindy Osborne PA-C Sep 07, 2017 08:14
[2017-09-07] MEDS: D5-1/2 NS + KCL 20 MEQ INJ 1,000 ML IV SCH ×2 (08:59→21:27)
[2017-09-07] MEDS: SODIUM CHLORIDE 0.9% FLUSH 10 ML FLUSH IV FLUSH SCH ×2 (09:00→21:27)
[2017-09-07] MEDS: BUDESONIDE-FORMOTEROL 160/4.5 MCG INHALER INH SCH ×2 (09:00→21:27)
[2017-09-07] MEDS: COLLAGENASE OINT 30 GM TUBE TOPICAL SCH (09:00)
[2017-09-07] MEDS: BENEPROTEIN POWDER 1 PACK G-TUBE SCH ×3 (09:00→18:00)
--- NOTE | 2017-09-07 09:48 | RADRPT ---
EXAM DATE/TIME: 09/07/2017 09:11 [facility] COMPARISON: CHEST SINGLE AP, September 05, 2017, 6:00. CHEST SINGLE AP, September 06, 2017, 9:22. INDICATIONS : Cough. MEDICAL HISTORY : Hypertension. Diabetes mellitus type II. Chronic obstructive pulmonary disease. Alzheimers, Acute renal failure. SURGICAL HISTORY : PEG tube placement. ENCOUNTER: Initial ACUITY: 3 days PAIN SCORE: 0/10 LOCATION: chest FINDINGS: Ill-defined opacity adjacent to the eventrated left hemidiaphragm with some air bronchograms suggesti ng subsegmental left lower lung consolidation. The right lung is clear. The heart is normal in size . CONCLUSION: Small consolidative infiltrate left lower lung. Delroy Owens MD on September 07, 2017 at 9:45 Board Certified Radiologist. This report was verified electronically.
--- NOTE | 2017-09-07 09:59 | RADRPT ---
EXAM DATE/TIME: 09/07/2017 09:22 [facility] COMPARISON: No previous studies available for comparison. INDICATIONS : PEG tube malfunctioning. MEDICAL HISTORY : Hypertension. Diabetes mellitus type II. Chronic obstructive pulmonary disease. Alzheimers, Acute renal failure. SURGICAL HISTORY : PEG tube placement. ENCOUNTER: Subsequent ACUITY: 3 days PAIN SCORE: 0/10 LOCATION: Abdomen. FINDINGS: There is a gastrostomy catheter projects over the stomach. Contrast is seen in the colon. No dilated loops of bowel are noted. No gross pneumatosis or free air. Multiple phleboliths in the pelvis. Degen erative changes of the lower lumbar spine. CONCLUSION: 1. Gastrostomy tube projects over the stomach. 2. Nonobstructive bowel gas pattern. Forrest Horvath MD on September 07, 2017 at 9:56 Board Certified Radiologist. This report was verified electronically.
[2017-09-07] MEDS: methylPREDNISolone SOD SUCC 40 MG/1 ML VIAL IV PUSH SCH ×3 (10:59→21:26)
[2017-09-07] MEDS: METOPROLOL TARTRATE 25 MG TAB PO SCH ×2 (11:27→21:00)
[2017-09-07] MEDS: risperiDONE 0.5 MG TAB PO SCH ×2 (11:27→21:26)
[2017-09-07] MEDS: PIPERACIL-TAZO 4.5 GM PREMIX 100 ML IV SCH ×2 (16:43→21:26)
[2017-09-07] MEDS: MELATONIN 5 MG TAB PO SCH (21:26)
[2017-09-08] VITALS (8 sets, daily range): BP systolic 107–163; BP diastolic 56–78; PULSE 74–90; RESP 16–18; TEMP 96.7–98.4; O2SAT 90–98
[2017-09-08] MEDS: PIPERACIL-TAZO 4.5 GM PREMIX 100 ML IV SCH ×4 (02:26→22:57)
[2017-09-08] MEDS: RESP: ALBUTEROL 2.5 MG/IPRATROPIUM 0.5 MG NEB (SCH) NEB ×4 (03:02→21:33)
[2017-09-08] MEDS: methylPREDNISolone SOD SUCC 40 MG/1 ML VIAL IV PUSH SCH ×3 (06:30→22:56)
[2017-09-08 06:53] LABS: AUTOMATED NEUTROPHIL # 9.9 TH/MM3 (1.8-7.7); BASOPHIL % 0.4 % (0.0-2.0); HEMATOCRIT 27.8 % (35.0-46.0); HEMOGLOBIN 8.9 GM/DL (11.6-15.3); LYMPH % 8.1 % (9.0-44.0); LYMPHOCYTE # 0.9 TH/MM3 (1.0-4.8); MEAN CELL VOLUME 85.7 FL (80.0-100.0); MEAN CORPUSCULAR HEMOGLOBIN 27.6 PG (27.0-34.0); MEAN CORPUSCULAR HGB CONC 32.2 % (32.0-36.0); MEAN PLATELET VOLUME 8.7 FL (7.0-11.0); MONOCYTE # 0.4 TH/MM3 (0-0.9); NEUT % 87.5 % (16.0-70.0); PLATELET COUNT 343 TH/MM3 (150-450); RED BLOOD COUNT 3.24 MIL/MM3 (4.00-5.30); RED CELL DISTRIBUTION WIDTH 23.3 % (11.6-17.2); WHITE BLOOD COUNT 11.3 TH/MM3 (4.0-11.0)
[2017-09-08 07:16] LABS: CALCIUM 8.5 MG/DL (8.5-10.1); CREATININE 0.99 MG/DL (0.50-1.00)
[2017-09-08] MEDS: SODIUM CHLORIDE 0.9% FLUSH 10 ML FLUSH IV FLUSH SCH ×2 (08:55→22:57)
[2017-09-08] MEDS: METOPROLOL TARTRATE 25 MG TAB PO SCH ×2 (09:08→22:24)
[2017-09-08] MEDS: risperiDONE 0.5 MG TAB PO SCH ×2 (09:11→22:24)
--- NOTE | 2017-09-08 09:11 | HHI.PR ---
Subjective Remarks Follow up for PEG malfunction, COPD exacerbation, aspiration pneumonia. The patient reports feeling better today. She reports continued nonproductive cough however improved compared to yesterday. Denies any significant shortness of breath. Denies any chest pain. Denies fevers/chills. She is still on oxygen 2L NC with O2 sat 98%. She does not wear oxygen at SNF. Discussed with RN, patient was started back on tube feeds yesterday with max rate 40ml/hr. PEG flushing well per RN. Objective Vitals Vital Signs Date Time Temp Pulse Resp B/P (MAP) Pulse Ox O2 Delivery O2 Flow Rate FiO2 09/08/17 09:08 98 Nasal Cannula 2.00 09/08/17 08:33 97.8 86 18 126/78 (94) 95 09/08/17 04:28 97.1 74 18 127/56 (79) 98 09/08/17 00:00 97.8 90 18 163/72 (102) 97 09/07/17 21:23 95 Nasal Cannula 2.00 09/07/17 21:21 98 18 158/74 (102) 95 09/07/17 20:48 93 21 09/07/17 20:34 94 Nasal Cannula 2.00 09/07/17 17:06 98.7 83 21 128/61 (83) 91 09/07/17 11:19 98.8 98 20 120/75 (90) 91 I/O 09/07/17 09/07/17 09/07/17 09/08/17 09/08/17 09/08/17 07:00 15:00 23:00 07:00 15:00 23:00 Intake Total 1000 ml 2200 ml Output Total 1 ml Balance 1000 ml 2199 ml Intake IV Total 1000 ml 2200 ml Output Stool Total 1 ml # Voids 1 5 Result Diagram: 09/08/17 0611 09/08/17 0611 Imaging Last Impressions Chest X-Ray 09/07/17 0000 Signed Impressions: Service Date/Time: Thursday, September 07, 2017 09:11 - CONCLUSION: Small consolidative infiltrate left lower lung. Delroy Owens MD Abdomen X-Ray 09/07/17 0000 Signed Impressions: Service Date/Time: Thursday, September 07, 2017 09:22 - CONCLUSION: 1. Gastrostomy tube projects over the stomach. 2. Nonobstructive bowel gas pattern. Forrest Horvath MD Gastrostomy Tube Placement 09/06/17 0000 Signed Impressions: Service Date/Time: Wednesday, September 06, 2017 15:12 - CONCLUSION: Uncomplicated gastrostomy tube placement through existing gastrostomy tract, as above. Forrest Horvath MD Objective Remarks GENERAL: Well-nourished, well-developed pleasantly confused elderly female patient in [place]. SKIN: Warm and dry. No rash. HEENT: Normocephalic. Atraumatic. Pupils equal and round. Mucous membranes pink and moist. CARDIOVASCULAR: Regular rate and rhythm. S1, S2 noted. No murmur appreciated. RESPIRATORY: No accessory muscle use. Breath sounds slightly diminished at bilateral bases, worse at left base, otherwise no rhonchi, crackles, or wheezing today. Breath sounds equal bilaterally. GASTROINTESTINAL: Abdomen soft, non-tender, nondistended. Normoactive bowel sounds x4. PEG at left abdominal wall, no surrounding erythema/edema. MUSCULOSKELETAL: No obvious deformities. Extremities without clubbing, cyanosis , or edema. NEUROLOGICAL: Awake and alert. No obvious cranial nerve deficits. Motor grossly within normal limits. Normal speech. PSYCHIATRIC: Appropriate mood and affect; insight and judgment limited. Procedures 09/06-PEG tube replacement by IR Medications and IVs Current Medications Medications (Trade) Dose Ordered Sig/Misa Route Start Time Stop Time Status Last Admin Potassium Chloride/Dextrose/ Sod Cl 1,000 ml @ 80 mls/hr [id number] IV 09/05/17 10:44 09/07/17 21:27 (NS Flush) 2 ml UNSCH PRN IV FLUSH 09/05/17 10:45 (NS Flush) 2 ml BID IV FLUSH 09/05/17 21:00 09/07/17 21:27 (Zofran Inj) 4 mg Q6H PRN IVP 09/05/17 10:45 (Narcan Inj) 0.4 mg UNSCH PRN IV PUSH 09/05/17 10:45 (Milk Of Magnesia Liq) 30 ml Q12H PRN PO 09/05/17 10:45 (Senokot) 17.2 mg Q12H PRN PO 09/05/17 10:45 (Dulcolax Supp) 10 mg DAILY PRN RECTAL 09/05/17 10:45 (Lactulose Liq) 30 ml DAILY PRN PO 09/05/17 10:45 (Symbicort 160-4.5 Mcg Inh) 1 puff Q12HR INH 09/05/17 21:00 09/08/17 09:23 (Santyl Oint) 1 applic DAILY TOPICAL 09/06/17 09:00 09/08/17 09:23 (Melatonin) 2.5 mg HS PO 09/05/17 21:00 09/07/17 21:26 (risperDAL) 0.5 mg Q12HR PO 09/05/17 21:00 09/08/17 09:11 (Pill Splitter) 1 ea UNSCH PRN OTHER 09/05/17 11:30 (Lopressor) 12.5 mg Q12HR PO 09/05/17 21:00 09/08/17 09:08 (Duoneb Neb) 1 ampule Q6HR NEB NEB 09/06/17 10:00 09/08/17 09:04 (Beneprotein Powder) 1 pack TID G-TUBE 09/06/17 18:00 09/08/17 09:39 (Duoneb Neb) 1 ampule Q4HR NEB PRN INH 09/06/17 23:45 09/07/17 05:49 (SoluMEDROL INJ) 40 mg Q8HR IV PUSH 09/07/17 09:00 09/08/17 06:30 (Norvasc) 10 mg DAILY PO 09/07/17 09:00 09/08/17 09:11 Piperacillin Sod/ Tazobactam Sod 100 ml @ 200 mls/hr Q6H IV 09/07/17 15:00 09/08/17 09:08 A/P Assessment and Plan Patient is a pleasant but severely demented 77-year-old female with history of hypertension, COPD, dysphagia, status post PEG tube placement who was found to have PEG tube accidentally removed overnight, sent from [facility]. Dysphagia with PEG tube accidental dislodgment: -Given IVF, now discontinued -IR consulted, replaced PEG on 09/06 -Swallow eval by ST completed, recommends NPO and continuing nutrition, hydration, and medications via PEG; MAT CUTTER will continue to follow with attempts of po trials with pureed solids and honey thickened liquids with MAT CUTTER only -Home Health Assistant Consulted, recommends tubefeeds with Jevity 1.5 w/goal rate 50 ml/ hr plus Beneprotein 1 pkt TID and 240mls free water flushes q 6 hrs. -Tube feeds restarted, patient tolerating well so far. COPD Exacerbation: patient with diffuse rhonchi on exam, +nonproductive cough. -CXR on 09/05 and 09/06 reviewed, no acute findings -BNP 10, unlikely CHF/fluid overload -Continue patient's symbicort bid -S/p IV Solumedrol 125mg x1 -Continue steroids with IV Solumedrol 40mg q6h -Continue duonebs q6h misa and q4h prn Aspiration Pneumonia: patient with continued rhonchi on exam as above, first 2 chest xrays unremarkable, however repeat CXR on 09/07 showed small consolidative infiltrate left lower lung. Patient high risk for aspiration with dysphagia as above. -Started on IV Zosyn for now -Plan to transition to Levaquin and Flagyl for a total of 10 days at discharge Hypertension -Blood pressure improved -Continue patient's metoprolol and amlodipine Glaucoma -Continue patient's eyedrops Chronic anemia: Hemoglobin 9.7. Better than baseline. -monitor Dementia. -Appears to be stable. Continue chronic medications. DVT Prophylaxis: SCDs Discharge Planning Discharge hopefully tomorrow back to SNF. Patient improving. Cindy Osborne PA-C Sep 08, 2017 9:11 am
[2017-09-08] MEDS: BUDESONIDE-FORMOTEROL 160/4.5 MCG INHALER INH SCH ×2 (09:23→22:23)
[2017-09-08] MEDS: COLLAGENASE OINT 30 GM TUBE TOPICAL SCH (09:23)
[2017-09-08] MEDS: BENEPROTEIN POWDER 1 PACK G-TUBE SCH ×3 (09:39→17:25)
[2017-09-08] MEDS: MELATONIN 5 MG TAB PO SCH (22:24)
[2017-09-09 00:23] VITALS: BP 153/65; PULSE 66; RESP 16; TEMP 98.4; O2SAT 89
[2017-09-09] MEDS: PIPERACIL-TAZO 4.5 GM PREMIX 100 ML IV SCH ×2 (03:43→10:31)
[2017-09-09] MEDS: RESP: ALBUTEROL 2.5 MG/IPRATROPIUM 0.5 MG NEB (SCH) NEB ×2 (03:48→07:45)
[2017-09-09 04:11] VITALS: BP 140/54; PULSE 90; RESP 20; TEMP 96.5; O2SAT 97
[2017-09-09] MEDS: methylPREDNISolone SOD SUCC 40 MG/1 ML VIAL IV PUSH SCH (05:45)
[2017-09-09 07:58] VITALS: BP 146/67; PULSE 77; RESP 18; TEMP 98.1; O2SAT 99
--- NOTE | 2017-09-09 09:33 | HHI.DS ---
Discharge Summary Admission Date Sep 05, 2017 Discharge Date: Sep 09, 2017 Admitting Diagnosis GTube Dislodged (1) Aspiration pneumonia ICD Code: J69.0 - Pneumonitis due to inhalation of food and vomit (2) Malfunction of percutaneous endoscopic gastrostomy (PEG) tube ICD Code: K94.23 - Gastrostomy malfunction Status: Acute (3) COPD with exacerbation ICD Code: J44.1 - COPD with exacerbation Status: Resolved Procedures 09/06-PEG tube replacement by IR Brief History - From Admission Patient is a pleasant but severely demented 77-year-old female with history of hypertension, COPD, dysphagia, status post PEG tube placement who was found to have PEG tube accidentally removed overnight. Unable to be placed in the ER. History is limited by severe dementia. Patient appears comfortable, speaks pleasantly, smiles, however her answers have absolutely nothing to do with questions. CBC/BMP: 09/08/17 0611 09/08/17 0611 Significant Findings Laboratory Tests Test 09/06/17 10:49 09/08/17 06:11 White Blood Count 11.3 TH/MM3 (4.0-11.0) Red Blood Count 3.24 MIL/MM3 (4.00-5.30) Hemoglobin 8.9 GM/DL (11.6-15.3) Hematocrit 27.8 % (35.0-46.0) Red Cell Distribution Width 23.3 % (11.6-17.2) Neutrophils (%) (Auto) 87.5 % (16.0-70.0) Lymphocytes (%) (Auto) 8.1 % (9.0-44.0) Neutrophils # (Auto) 9.9 TH/MM3 (1.8-7.7) Lymphocytes # (Auto) 0.9 TH/MM3 (1.0-4.8) Blood Urea Nitrogen 22 MG/DL (7-18) Random Glucose 214 MG/DL (74-106) Estimat Glomerular Filtration Rate 66 ML/MIN (>89) Imaging Last Impressions Chest X-Ray 09/07/17 0000 Signed Impressions: Service Date/Time: Thursday, September 07, 2017 09:11 - CONCLUSION: Small consolidative infiltrate left lower lung. Delroy Owens MD Abdomen X-Ray 09/07/17 0000 Signed Impressions: Service Date/Time: Thursday, September 07, 2017 09:22 - CONCLUSION: 1. Gastrostomy tube projects over the stomach. 2. Nonobstructive bowel gas pattern. Forrest Horvath MD Gastrostomy Tube Placement 09/06/17 0000 Signed Impressions: Service Date/Time: Wednesday, September 06, 2017 15:12 - CONCLUSION: Uncomplicated gastrostomy tube placement through existing gastrostomy tract, as above. Forrest Horvath MD PE at Discharge GENERAL: Well-nourished, well-developed pleasantly confused elderly female patient in [facility]. SKIN: Warm and dry. No rash. HEENT: Normocephalic. Atraumatic. Pupils equal and round. Mucous membranes pink and moist. CARDIOVASCULAR: Regular rate and rhythm. S1, S2 noted. No murmur appreciated. RESPIRATORY: No accessory muscle use. Breath sounds clear to auscultation today. Breath sounds equal bilaterally. GASTROINTESTINAL: Abdomen soft, non-tender, nondistended. Normoactive bowel sounds x4. PEG at left abdominal wall, no surrounding erythema/edema. MUSCULOSKELETAL: No obvious deformities. Extremities without clubbing, cyanosis , or edema. NEUROLOGICAL: Awake and alert. No obvious cranial nerve deficits. Motor grossly within normal limits. Normal speech. PSYCHIATRIC: Appropriate mood and affect; insight and judgment limited. Pt update on day of discharge Follow up for PEG malfunction, aspiration pneumonia, COPD exacerbation. The patient reports feeling much better again today. She denies any fevers/chills, cough, shortness of breath, chest pain, nausea/vomiting, or abdominal pain. She was able to be weaned off oxygen with O2 sat 97-99% on morning of discharge. She is making jokes and laughing throughout conversation. Tolerating tube feeds well. Hospital Course Patient is a pleasant but severely demented 77-year-old female with history of hypertension, COPD, dysphagia, status post PEG tube placement who was found to have PEG tube accidentally removed overnight, sent from SNF. Dysphagia with PEG tube accidental dislodgment while at SNF: IR consulted, replaced PEG on 09/06. Given IVF until tube replaced, now discontinued. Swallow eval by ST [facility], recommends NPO and continuing nutrition, hydration, and medications via PEG; MAP PLOTTER will continue to follow with attempts of po trials with pureed solids and honey thickened liquids with MAP PLOTTER only. Needs speech therapy at SNF. Buffing Wheel Inspector Consulted, recommends tubefeeds with Jevity 1.5 w/ goal rate 50 ml/hr plus Beneprotein 1 pkt TID and 240mls free water flushes q 6 hrs. Tube feeds restarted, patient tolerating well. Stable for discharge. COPD Exacerbation: patient with diffuse rhonchi on exam on day 2 of admission, + nonproductive cough. Initial chest xrays on 09/05 and 09/06 reviewed, no acute findings. BNP 10, unlikely CHF/fluid overload. Continued patient's symbicort bid. S/p IV Solumedrol 125mg x1. Continue steroids with IV Solumedrol 40mg q6h. Continue duonebs q6h kin and q4h prn. Wheezing and rhonchi resolved. Weaned off oxygen with O2 sat 97%. Aspiration Pneumonia: patient with continued rhonchi on exam as above, first 2 chest xrays unremarkable, however repeat CXR on 09/07 showed small consolidative infiltrate left lower lung. Patient high risk for aspiration with dysphagia as above. Given IV Zosyn, with plan to transition to Augmentin for a total of 10 days at discharge. Lungs sound clear on day of discharge. Not requiring oxygen. Hypertension. Blood pressure improved. Continue patient's metoprolol and amlodipine. Glaucoma-Continue patient's eyedrops Chronic anemia: Hemoglobin 9.7. Better than baseline. Dementia.-Appears to be stable. Continue chronic medications. Pt Condition on Discharge: Good Discharge Disposition: Discharge to SNF Discharge Time: > 30 minutes Discharge Instructions DIET: Follow Instructions for: On Tube Feeding ( tubefeeds with Jevity 1.5 w/ goal rate 50 ml/hr plus Beneprotein 1 pkt TID and 240mls free water flushes q 6 hrs. ) Activities you can perform: Regular-No Restrictions Follow up Referrals: PCP Follow-up - 1 Week with Noman Yu MD New Medications: Amoxicillin-Clavulanate (Augmentin) 875-125 Mg Tab 1 TAB PEG BID for Infection for 10 Days, #20 TAB 0 Refills Prednisone (Prednisone) 20 Mg Tab 40 MG PEG DAILY for COPD exacerbation for 5 Days, #10 TAB 0 Refills Take 40 mg (2 tablets) daily for 5 days Continued Medications: Amlodipine (Norvasc) 10 Mg Tab 10 MG PO DAILY for Blood Pressure Management, #30 TAB 0 Refills Budesonide-Formoterol Inh (Symbicort Inh) 160-4.5 Mcg/Act Aero 1 PUFF INH Q12HR, #1 INHALER 0 Refills Cetirizine HCl (Zyrtec) 10 Mg Tablet Collagenase Topical (Santyl Topical) 250 Unit/Gm Oint 1 APPLIC TOPICAL DAILY for Wound Management, #30 GM 0 Refills As instructed. Ipratropium-Albuterol Neb (Duoneb) 0.5-2.5 Mg/3 Ml Neb 1 NEBULE INH Q4HR NEB for SHORTNESS OF BREATH, #120 NEBULE 0 Refills Magnesium Hydroxide Liq (Milk of Magnesia Liq) 400 Mg/5 Ml Susp 30 ML PO DAILY PRN for INDIGESTION OR UPSET STOMACH, #1 BOTTLE 0 Refills Melatonin (Melatonin) 5 Mg Tab 3 MG PO HS for Provide Good Sleep, TAB 0 Refills Meloxicam (Meloxicam) 7.5 Mg Tab 7.5 MG PO DAILY for Arthritis Pain, TAB 0 Refills Metoprolol Tartrate (Metoprolol Tartrate) 25 Mg Tab 12.5 MG PO DAILY, #30 TAB 0 Refills Multiple Vitamin (Multi-Vitamin Daily) 1 Tab Tab 1 TAB PO DAILY for Nutritional Supplement, TAB 0 Refills Risperidone (Risperdal) 0.5 Mg Tab 0.5 MG PO Q12HR, #60 TAB 0 Refills Cindy Osborne PA-C Sep 09, 2017 09:33
[2017-09-09] MEDS ORDERED: AUGM875T3 PEG (09:39)
[2017-09-09] MEDS ORDERED: PRED20 PEG (09:39)
[2017-09-09] MEDS: BUDESONIDE-FORMOTEROL 160/4.5 MCG INHALER INH SCH (10:30)
[2017-09-09] MEDS: COLLAGENASE OINT 30 GM TUBE TOPICAL SCH (10:30)
[2017-09-09] MEDS: BENEPROTEIN POWDER 1 PACK G-TUBE SCH ×2 (10:31→12:56)
[2017-09-09] MEDS: SODIUM CHLORIDE 0.9% FLUSH 10 ML FLUSH IV FLUSH SCH (10:34)
[2017-09-09] MEDS: METOPROLOL TARTRATE 25 MG TAB PO SCH (10:35)
[2017-09-09] MEDS: risperiDONE 0.5 MG TAB PO SCH (10:36)
== END 2017-09-09 13:57 | DRG 178 ==
LOC: NEPC 05:37 → NEDA 09:42 → NEPFCDU 11:32 → OBSVTOIN 09-08 13:57
PROVIDERS: ADMIT Family Medicine; ATTEND Family Medicine
PROC: 0DH63UZ Insertion of Feeding Device into Stomach, Percutaneous Approach (ICD-10-PCS; principal; 2017-09-06)
DX: J69.0 Pneumonitis due to inhalation of food and vomit (principal); K94.23 Gastrostomy malfunction; E11.9 Type 2 diabetes mellitus without complications; R13.10 Dysphagia, unspecified; G30.9 Alzheimer's disease, unspecified; J44.1 Chronic obstructive pulmonary disease with (acute) exacerbation; F02.80 Dementia in other diseases classified elsewhere, unspecified severity, without behavioral disturbance, psychotic disturbance, mood disturbance, and anxiety; I10 Essential (primary) hypertension; D64.9 Anemia, unspecified; H40.9 Unspecified glaucoma; M10.9 Gout, unspecified; G47.9 Sleep disorder, unspecified
CPT/HCPCS: 49440; 49452; 71045; 74018; 80048; 80053; 81001; 82948; 83036; 83735; 83880; 84484; 85025; 85610; 87086; 93005; 94640; 94664; 96365; 96366; 96367; 96368; 96375; 96376; 99152; C1769; C1894; G0378; G8996-GN; G8997-GN; J2250; J2543; J2920; J2930; J3010; J3480; Q9967

== ENCOUNTER 2018-03-10 08:19 | Inpatient (IN) ==
[2018-03-10] MEDS ORDERED: Pantoprazole Inj 40 MG Vial IV.PUSH ONE (08:30)
--- NOTE | 2018-03-10 08:34 | ED ---
HPI General Chief complaint: GI Bleed Stated complaint: GI Time Seen by Provider: 03/10/18 08:30 Source: EMS Mode of arrival: EMS Limitations: altered mental status History of Present Illness HPI Narrative: 77-year-old female patient who is demented presents to the ER today Brought in by EMS because skilled nursing staff noticed black stools last night. Patient denies any issues, denies any chest pains, shortness of breath, abdominal pains, or any other symptoms.However, it is unclear is she is a reliable historian. Related Data Allergies Allergy/AdvReac Type Severity Reaction Status Date / Time No Known Allergies Allergy Verified 03/10/18 08:55 Review of Systems ROS Unobtainable ROS Unobtainable: unobtainable due to mental status PMFSH History History Provided By: Patient Medical History Medical History COPD (chronic obstructive pulmonary disease) (Acute) Dementia (Acute) Dysphagia (Acute) Glaucoma (Acute) Gout (Acute) Hypertension (Acute) Social History Social History Substance History: No History of Abuse Smoking Status: Former smoker Tobacco Type: Cigarettes How Often Do You Have a Drink Containing Alcohol: Never Exam Narrative Exam Narrative: GENERAL: Well-developed elderly -[place] female patient currently in mild distress. Awake and oriented 3. SKIN: Focused skin assessment warm/dry. HEAD: Atraumatic. Normocephalic. EYES: Pupils equal and round. No scleral icterus. No injection or drainage. ENT: No nasal bleeding or discharge. Mucous membranes pink and moist. NECK: Trachea midline. No JVD. CARDIOVASCULAR: Regular rate and rhythm. No murmur appreciated. RESPIRATORY: No accessory muscle use. Clear to auscultation. Breath sounds equal bilaterally. GASTROINTESTINAL: Abdomen soft, non-tender, nondistended. Hepatic and splenic margins not palpable. MUSCULOSKELETAL: No obvious deformities. No clubbing. No cyanosis. No edema. NEUROLOGICAL: Awake and alert. No obvious cranial nerve deficits. Motor grossly within normal limits. Normal speech. PSYCHIATRIC: Appropriate mood and affect; insight and judgment normal. Procedures Hemaprompt Stool Procedural Steps Taken: specimen placed in appropriate test area and controls appropriately positive and negative Hemaprompt Stool Result: positive Course Initial Documented Vital Signs Temperature 98.9 F 03/10/18 08:30 Pulse Rate 112 H 03/10/18 08:30 Respiratory Rate 20 03/10/18 08:30 Blood Pressure 184/99 H 03/10/18 08:30 Pulse Oximetry 98 03/10/18 08:30 Last Documented Vital Signs Temperature 98.6 F 03/10/18 08:40 Pulse Rate 112 H 03/10/18 08:30 Respiratory Rate 20 03/10/18 08:40 Blood Pressure 184/99 H 03/10/18 08:40 Pulse Oximetry 98 03/10/18 08:40 Medical Decision Making MDM Narrative Medical decision making narrative: Patient is having maroon stools currently, her vital signs are stable, her H&H is stable, but considering how much blood she is putting out, 2 units of PRBCs were ordered. She was given Protonix. At this point, case has been discussed with family practice resident service for admission. Medical Screen Exam Complete: Yes Emergency Medical Condition: Yes Differential Diagnosis Differential Diagnosis: GI bleed versus coagulopathy versus Hemorrhoidal bleed Lab Data Lab results reviewed: Yes I reviewed the patient's lab results. Result diagrams: 03/10/18 08:45 03/10/18 08:45 Lab Results 03/10/18 03/10/18 03/10/18 Range/Units 08:15 08:45 08:45 WBC 16.7 H (4.0-11.0) th/mm3 RBC 3.18 L (4.00-5.30) mil/mm3 Hgb 8.7 L (11.6-15.3) gm/dL Hct 27.4 L (35.0-46.0) % MCV 86.2 (80.0-100.0) fL MCH 27.3 (27.0-34.0) pg MCHC 31.7 L (32.0-36.0) % RDW 19.2 H (11.6-17.2) % Plt Count 332 (150-450) th/mm3 MPV 9.0 (7.0-11.0) fL Neut % (Auto) 75.3 H (16.0-70.0) % Lymph % (Auto) 14.6 (9.0-44.0) % [place] % (Auto) 5.8 (0.0-8.0) % Eos % (Auto) 3.4 (0.0-4.0) % Baso % (Auto) 0.9 (0.0-2.0) % Neut # (Auto) 12.5 H (1.8-7.7) th/mm3 Lymph # (Auto) 2.4 (1.0-4.8) th/mm3 [place] # (Auto) 1.0 H (0.0-0.9) th/mm3 Eos # (Auto) 0.6 H (0.0-0.4) th/mm3 Baso # (Auto) 0.1 (0.0-0.2) th/mm3 WBC Differential . Differential Comment Auto diff final PT 9.9 (9.8-11.6) sec INR 1.0 Ratio APTT 27.1 (24.3-30.1) sec Sodium (136-145) meq/L Potassium (3.5-5.1) meq/L Chloride (98-107) meq/L Carbon Dioxide (21.0-32.0) meq/L Anion Gap (5-15) meq/L BUN (7-18) mg/dL Creatinine (0.50-1.00) mg/dL Estimated GFR (>89) mL/min Random Glucose (74-106) mg/dL Calcium (8.5-10.1) mg/dL Total Bilirubin (0.2-1.0) mg/dL AST (15-37) U/L ALT (10-53) U/L Alkaline Phosphatase (45-117) U/L Total Protein (6.4-8.2) g/dL Albumin (3.4-5.0) g/dL Blood Type AB Positive Blood Type Recheck Required Antibody Screen Negative 03/10/18 Range/Units 08:45 WBC (4.0-11.0) th/mm3 RBC (4.00-5.30) mil/mm3 Hgb (11.6-15.3) gm/dL Hct (35.0-46.0) % MCV (80.0-100.0) fL MCH (27.0-34.0) pg MCHC (32.0-36.0) % RDW (11.6-17.2) % Plt Count (150-450) th/mm3 MPV (7.0-11.0) fL Neut % (Auto) (16.0-70.0) % Lymph % (Auto) (9.0-44.0) % [place] % (Auto) (0.0-8.0) % Eos % (Auto) (0.0-4.0) % Baso % (Auto) (0.0-2.0) % Neut # (Auto) (1.8-7.7) th/mm3 Lymph # (Auto) (1.0-4.8) th/mm3 [place] # (Auto) (0.0-0.9) th/mm3 Eos # (Auto) (0.0-0.4) th/mm3 Baso # (Auto) (0.0-0.2) th/mm3 WBC Differential Differential Comment PT (9.8-11.6) sec INR Ratio APTT (24.3-30.1) sec Sodium 142 (136-145) meq/L Potassium 4.9 (3.5-5.1) meq/L Chloride 104 (98-107) meq/L Carbon Dioxide 28.9 (21.0-32.0) meq/L Anion Gap 9 (5-15) meq/L BUN 52 H (7-18) mg/dL Creatinine 1.01 H (0.50-1.00) mg/dL Estimated GFR 65 L (>89) mL/min Random Glucose 154 H (74-106) mg/dL Calcium 8.4 L (8.5-10.1) mg/dL Total Bilirubin Less than 0.1 L (0.2-1.0) mg/dL AST 17 (15-37) U/L ALT 14 (10-53) U/L Alkaline Phosphatase 89 (45-117) U/L Total Protein 7.0 (6.4-8.2) g/dL Albumin 2.8 L (3.4-5.0) g/dL Blood Type Blood Type Recheck Antibody Screen Imaging Data Attestation: I personally reviewed and interpreted this imaging study as follows : Radiologist's impression: Chest X-Ray 03/10/18 08:30 CONCLUSION: 1. No free air is visualized. There is mild atelectasis at the lung bases related to the under inflation. 2. Severe left glenohumeral joint osteoarthritis. Discharge Plan Discharge Disposition Patient Disposition: 30 Still Patient Discharge Condition Condition: Good Discharge Details Anticipated Discharge Date: 03/10/18 Diagnosis: [facility] ED Provider: [facility] Primary Care Provider: Noman Yu Discharge Interventions Interventions: Vital Signs Last Done: 03/10/18 08:40 Status ED Status: With Doctor
[2018-03-10 09:24] LABS: Baso # (Auto) 0.1 th/mm3 (0.0-0.2); Baso % (Auto) 0.9 % (0.0-2.0); Eos # (Auto) 0.6 th/mm3 (0.0-0.4); Eos % (Auto) 3.4 % (0.0-4.0); Hematocrit 27.4 % (35.0-46.0); Hemoglobin 8.7 gm/dL (11.6-15.3); Lymph # (Auto) 2.4 th/mm3 (1.0-4.8); Lymph % (Auto) 14.6 % (9.0-44.0); Mean Corpuscular HGB Conc 31.7 % (32.0-36.0); Mean Corpuscular Hemoglobin 27.3 pg (27.0-34.0); Mean Corpuscular Volume 86.2 fL (80.0-100.0); Mono % (Auto) 5.8 % (0.0-8.0); Neut # (Auto) 12.5 th/mm3 (1.8-7.7); Neut % (Auto) 75.3 % (16.0-70.0); Platelet Count 332 th/mm3 (150-450); Red Blood Count 3.18 mil/mm3 (4.00-5.30); Red Cell Distribution Width 19.2 % (11.6-17.2); White Blood Count 16.7 th/mm3 (4.0-11.0)
--- NOTE | 2018-03-10 09:29 | XR ---
EXAM DATE: 03/10/2018 9:23 AM EDT AGE/SEX: 77 years / Female INDICATIONS: Free air CLINICAL DATA: This is the patient's initial encounter. Patient reports that signs and symptoms have been present for 1 day and indicates a pain score of 0/10. MEDICAL/SURGICAL HISTORY: . Hypertension. Diabetes mellitus type II. Chronic obstructive pulmon latha disease. Alzheimer's, Acute renal failure. . COMPARISON: [facility] [place]ST SINGLE AP, 09/07/2017. . FINDINGS: Underinflated AP view of the chest demonstrates a normal-sized cardiac silhouette with calcification of the aorta. EKG lines overlie the patient. There is atelectasis at the lung bases. No effusion or p neumothorax is identified. Severe glenohumeral joint osteoarthritis is present on the left. No free a ir is seen beneath the hemidiaphragms. CONCLUSION: 1. No free air is visualized. There is mild atelectasis at the lung bases related to the under infla tion. 2. Severe left glenohumeral joint osteoarthritis. Electronically signed by: Mark Bedolla MD 03/10/2018 9:27 AM EDT
[2018-03-10 09:33] LABS: Alanine Aminotransferase 14 U/L (10-53)
[2018-03-10 09:34] LABS: Albumin 2.8 g/dL (3.4-5.0); Alkaline Phosphatase 89 U/L (45-117); Anion Gap 9 meq/L (5-15); Aspartate Aminotransferase 17 U/L (15-37); Blood Urea Nitrogen 52 mg/dL (7-18); Calcium 8.4 mg/dL (8.5-10.1); Carbon Dioxide 28.9 meq/L (21.0-32.0); Chloride 104 meq/L (98-107); Glomerular Filtration Rate 65 mL/min (>89); Glucose,Random 154 mg/dL (74-106); Potassium 4.9 meq/L (3.5-5.1); Sodium 142 meq/L (136-145)
[2018-03-10 09:39] LABS: Activated Partial Thrombo Time 27.1 sec (24.3-30.1); Prothrombin Time 9.9 sec (9.8-11.6)
[2018-03-10] MEDS ORDERED: Sodium Chlor 0.9% Inj 250 ML IV.SIG SCH (10:00)
--- NOTE | 2018-03-10 10:59 | P.HPFP ---
History of Present Illness Primary Care Physician: Noman Yu MD <ManpreetRonApurva M - 03/11/18 13:22> Noman Yu MD <BellKiera G - 03/10/18 10:59> Chief Complaint: bloody stools <Kiera Luu - 03/10/18 12:22> History of Present Illness: There is a 77-year-old -[place] female with a past medical history of COPD retention, glaucoma, dimension presenting to the ED with bloody stools. Patient states that she was in the fdc in brought to the hospital. She was unable to say why she is here. She states that she has no abdominal pain, she is eating and drinking okay, goes to the bathroom by herself. She states that her stool is brown, no signs of blood, no diarrhea. According to the fdc staff at [facility] she is usually incontinent of stool. Nursing noticed last night that she had bloody stools while changing her , probably 1 or 2. Of note, her right eye usually looks chronically infected. ED nursing staff-patient was gushing maroon colored stools while in the ED she had to be changed 5 times. Tried to contact pt's daughter, Deborah Segura, at [phone] and , but both numbers are out of service. [facility] also tried to contact daughter at these numbers, but were also unsuccessful. PMH: pt denies any According to [facility] records patient has: COPD Hypertension Glaucoma Muscle weakness Gout Cognitive communication deficit Alzheimer's disease Insomnia Difficulty walking Dysphasia, oropharyngeal phase Behavioral disturbance Anxiety disorder Rheumatoid arthritis PSH: pt denies Social hx: Unable to tell name of fdc states that she does not have any children denies tobacco, alcohol, or illicit drug use <BellAmanKiera Fabiana - 03/10/18 12:22> - Diagnosis (1) GI bleed (2) Conjunctivitis (3) COPD (chronic obstructive pulmonary disease) (4) HTN (hypertension) (5) Dementia (6) Normocytic anemia (7) Nutrition, metabolism, and development symptoms (8) DVT prophylaxis <ManpreetRonApurva Santa - 03/11/18 13:22> (1) GI bleed (2) Conjunctivitis (3) COPD (chronic obstructive pulmonary disease) (4) HTN (hypertension) (5) Dementia (6) Normocytic anemia (7) Nutrition, metabolism, and development symptoms (8) DVT prophylaxis <Kiera Luu 03/10/18 17:22> Inpatient Certification: I certify that the inpatient services were ordered in accordance with Medicare regulations governing the order. This includes certification that hospital inpatient services are reasonable and necessary and in the case of services not specified as inpatient-only under 42 CFR 419.22(n), that they are appropriately provided as inpatient services in accordance to with the 2-midnight benchmark under 43 CFR 412.3(e) <Apurva Case 03/11/18 13:22> Review of Systems Constitutional: Denies chills, Denies fatigue, Denies fever(s) <Kiera Luu 03/10/18 10:59> Eyes: Denies blurry vision <Kiera Luu 03/10/18 10:59> Cardiovascular: Denies chest pain <Kiera Luu 03/10/18 10:59> Respiratory: Denies shortness of breath <Kiera Luu 03/10/18 10:59> Gastrointestinal: Denies abdominal pain, Denies bright, red blood in stools < Kiera uLu 03/10/18 10:59> PMFSH - History History Provided By: Patient <Kiera Luu 03/10/18 10:59> - Medical History Medical History: Medical History (Last Updated 03/10/18 @ 08:37 by Skylar Robertson) COPD (chronic obstructive pulmonary disease) Dementia Dysphagia Glaucoma Gout Hypertension <Apurva Case 03/11/18 13:22> Medical History (Last Updated 03/10/18 @ 08:37 by Skylar Robertson) COPD (chronic obstructive pulmonary disease) Dementia Dysphagia Glaucoma Gout Hypertension <Kiera Luu 03/10/18 10:59> - Tobacco History Smoking Status: Former smoker <Kiera Luu 03/10/18 10:59> Tobacco Type: Cigarettes <Kiera Luu 03/10/18 10:59> - Alcohol History How Often Do You Have a Drink Containing Alcohol: Never <Kiera Luu 10:59> - Substance Use History Substance History: No History of Abuse <Kiera Luu - 03/10/18 10:59> - Immunization History Tetanus Immunization: Unsure <Kiera Luu - 03/10/18 10:59> Hx Influenza Vaccine This Season: Unable to Assess <Kiera Luu - 03/10/18 10 :59> Medications and Allergies Allergies Allergy/AdvReac Type Severity Reaction Status Date / Time No Known Allergies Allergy Verified 03/10/18 08:55 <Apurva Case - 03/11/18 13:22> Home Medications Medication Instructions Recorded Confirmed Type albuterol sulfate 0.63 mg INHALATION Q2HR PRN 03/10/18 03/10/18 History amlodipine 10 mg FEEDING TUBE DAILY 03/10/18 03/10/18 History budesonide-formoterol [Symbicort] 2 puff INHALATION BID 03/10/18 03/10/18 History cetirizine [Zyrtec] 10 mg FEEDING TUBE DAILY 03/10/18 03/10/18 History ipratropium-albuterol 3 ml INHALATION Q4HR PRN 03/10/18 03/10/18 History magnesium hydroxide [Milk of 30 ml FEEDING TUBE DAILY PRN 03/10/18 03/10/18 History Magnesia] melatonin 3 mg FEEDING TUBE HS 03/10/18 03/10/18 History meloxicam [Mobic] 7.5 mg FEEDING TUBE DAILY 03/10/18 03/10/18 History metoprolol tartrate 12.5 mg FEEDING TUBE DAILY 03/10/18 03/10/18 History risperidone [Risperdal] 0.5 mg FEEDING TUBE BID 03/10/18 03/10/18 History <Apurva Case - 03/11/18 13:22> Active Medications: Active Medications Albuterol (Albuterol Neb (Prn)) 0.63 mg NEB Q2HR NEB PRN PRN Reason: Shortness Of Breath Amlodipine Besylate (Norvasc) 10 mg G-TUBE DAILY [facility] Last Admin: 03/11/18 09:15 Dose: 10 mg Budesonide/Formoterol Fumarate (Symbicort 160/4.5 Mcg Inh) 2 puff INH BID [facility] Last Admin: 03/11/18 09:25 Dose: Not Given Cetirizine HCl (Zyrtec) 10 mg G-TUBE DAILY [facility] Last Admin: 03/11/18 09:16 Dose: 10 mg Erythromycin (Ilotycin 0.5% Opth Oint) 1 applicatio RIGHT EYE QID [facility] Last Admin: 03/11/18 13:20 Dose: Not Given Sodium Chloride (Ns Inj) 1,000 mls @ 120 mls/hr IV.CONT .Q8H20M [facility] Last Admin: 03/11/18 13:20 Dose: Not Given Melatonin (Melatonin) 5 mg PO HS [facility] Last Admin: 03/10/18 21:46 Dose: Not Given Metoprolol Tartrate (Lopressor) 12.5 mg G-TUBE DAILY [facility] Last Admin: 03/11/18 09:15 Dose: 12.5 mg Miscellaneous (Pill Splitter) 1 each OTHER UNSCH PRN PRN Reason: SEE LABEL COMMENTS Ondansetron HCl (Zofran Inj) 4 mg IV.PUSH Q6H PRN PRN Reason: NAUSEA Pantoprazole Sodium (Protonix Inj) 40 mg IV.PUSH DAILY [facility] Last Admin: 03/11/18 09:16 Dose: 40 mg Risperidone (Risperdal) 0.5 mg G-TUBE BID [facility] Last Admin: 03/11/18 09:16 Dose: 0.5 mg Sodium Chloride (Ns Flush) 2 ml IV.FLUSH BID [facility] Last Admin: 03/11/18 09:16 Dose: Not Given Sodium Chloride (Ns Flush) 2 ml IV.FLUSH PRN PRN PRN Reason: FLUSH AFTER USING IV ACCESS <Apurva Case - 03/11/18 13:22> Active Medications Sodium Chloride (Ns Inj) 250 mls @ 15 mls/hr IV.SIG ONCE [facility] Stop: 03/11/18 02:39 Sodium Chloride (Ns Flush) 2 ml IV.FLUSH PRN PRN PRN Reason: FLUSH AFTER USING IV ACCESS <Kiera Luu - 03/10/18 10:59> Exam Vital signs: Vital Signs 03/10/18 13:46 03/10/18 14:34 03/10/18 15:00 Temperature 98.4 F 98.2 F Pulse Rate 90 65 Respiratory Rate 16 14 Blood Pressure 170/98 H 149/70 H 180/96 H Pulse Oximetry 97 94 L 03/10/18 15:40 03/10/18 15:53 03/10/18 17:23 Temperature 98.0 F Pulse Rate 68 94 H 95 H Respiratory Rate 18 17 18 Blood Pressure 180/96 H 184/91 H 148/70 H Pulse Oximetry 95 92 L 03/10/18 20:00 03/11/18 00:00 03/11/18 08:00 Temperature 98 F 98.2 F 97.6 F Pulse Rate 96 H 89 95 H Respiratory Rate 20 20 18 Blood Pressure 139/87 147/70 H 156/75 H Pulse Oximetry 93 L 93 L 96 03/11/18 12:00 Temperature 97.9 F Pulse Rate 84 Respiratory Rate 18 Blood Pressure 107/80 Pulse Oximetry 93 L Intake & Output 03/10/18 03/11/18 03/11/18 18:59 06:59 18:59 Intake Total 850 / 850 20 / 20 Output Total 0 / 0 Balance 850 / 850 20 / 20 Weight 78 kg 88.5 kg Intake: IV 20 / 20 NS Inj 250 ML @ 15 mls/hr IV. 20 / 20 SIG ONCE MONIE Rx#:[id number] Water Bolus Amount 50 / 50 Other 400 / 400 Rbc As-3 Leukoreduced Unit 400 / 400 [id number] Intake (Blood Product) Amt 400 / 400 Rbc As-3 Leukoreduced Unit 400 / 400 [id number] Rbc As-3 Leukoreduced Unit 0 / 0 [id number] Output: Gastric Drainage 0 / 0 Pre-Hospital Gastrostomy Tube ( 0 / 0 PEG) Other: # Voids 1 3 Date of Last Bowel Movement 03/10/18 03/10/18 # Bowel Movements 1 # Incontinent Bowel Movements 3 <Apurva Case M - 03/11/18 13:22> Vital Signs 03/10/18 08:30 03/10/18 08:40 Temperature 98.9 F 98.6 F Pulse Rate 112 H Respiratory Rate 20 20 Blood Pressure 184/99 H 184/99 H Pulse Oximetry 98 98 Intake & Output 03/09/18 03/10/18 03/10/18 18:59 06:59 18:59 Weight 78 kg <Kiera Luu - 03/10/18 10:59> Narrative: GENERAL: elderly obese female laying in bed, in no acute distress SKIN: Warm and dry. HEAD: Atraumatic. Normocephalic. EYES: No scleral icterus. No injection or drainage. Green drainage from right eye, eyelids stuck together, lower eyelid conjunctiva is erythematous. ENT: No nasal bleeding or discharge. Mucous membranes pink and dry. NECK: Trachea midline. No JVD. CARDIOVASCULAR: Regular rate and rhythm. RESPIRATORY: No accessory muscle use. Diffuse inspiratory and expiratory wheezing auscultated anteriorly due to pt being unable to sit up. Breath sounds equal bilaterally. GASTROINTESTINAL: Abdomen soft, non-tender, nondistended. Hepatic and splenic margins not palpable. G-tube in place, no erythema, no drainage, no signs of infection. Dark colored stool in diaper. MUSCULOSKELETAL: Extremities without clubbing, cyanosis, or edema. No obvious deformities. NEUROLOGICAL: Awake and alert. No obvious cranial nerve deficits. Motor grossly within normal limits. Normal speech. A&O x1 to self only. PSYCHIATRIC: Appropriate mood and affect; insight and judgment normal. <Kiera Luu - 03/10/18 12:22> Results - Labs Result diagrams: 03/11/18 07:41 03/11/18 03:18 <Apurva Case - 03/11/18 13:22> Abnormal lab results 03/10/18 03/10/18 03/10/18 Range/Units 09:12 20:00 20:00 WBC 15.9 H (4.0-11.0) th/mm3 RBC 3.86 L (4.00-5.30) mil/mm3 Hgb 11.0 L D 10.9 L (11.6-15.3) gm/dL Hct 32.8 L 33.5 L (35.0-46.0) % RDW (11.6-17.2) % Neut % (Auto) 78.0 H (16.0-70.0) % Neut # (Auto) 12.4 H (1.8-7.7) th/mm3 BUN (7-18) mg/dL Estimated GFR (>89) mL/min Calcium (8.5-10.1) mg/dL MTS Gel Crossmatch See Detail 03/11/18 03/11/18 Range/Units 03:18 07:41 WBC 13.3 H (4.0-11.0) th/mm3 RBC 3.56 L (4.00-5.30) mil/mm3 Hgb 9.9 L (11.6-15.3) gm/dL Hct 30.8 L (35.0-46.0) % RDW 17.4 H (11.6-17.2) % Neut % (Auto) (16.0-70.0) % Neut # (Auto) (1.8-7.7) th/mm3 BUN 33 H (7-18) mg/dL Estimated GFR 79 L (>89) mL/min Calcium 7.9 L (8.5-10.1) mg/dL MTS Gel Crossmatch Short CBC 03/10/18 03/10/18 03/11/18 Range/Units 20:00 20:00 07:41 WBC 15.9 H 13.3 H (4.0-11.0) th/mm3 Hgb 11.0 L D 10.9 L 9.9 L (11.6-15.3) gm/dL Hct 32.8 L 33.5 L 30.8 L (35.0-46.0) % Plt Count 270 235 (150-450) th/mm3 [facility] 03/11/18 03:18 Sodium 144 Potassium 4.5 Chloride 107 Carbon Dioxide 31.1 BUN 33 H Creatinine 0.85 Calcium 7.9 L <Apurva Case - 03/11/18 13:22> Abnormal lab results 03/10/18 03/10/18 Range/Units 08:45 08:45 WBC 16.7 H (4.0-11.0) th/mm3 RBC 3.18 L (4.00-5.30) mil/mm3 Hgb 8.7 L (11.6-15.3) gm/dL Hct 27.4 L (35.0-46.0) % MCHC 31.7 L (32.0-36.0) % RDW 19.2 H (11.6-17.2) % Neut % (Auto) 75.3 H (16.0-70.0) % Neut # (Auto) 12.5 H (1.8-7.7) th/mm3 Wilcox # (Auto) 1.0 H (0.0-0.9) th/mm3 Eos # (Auto) 0.6 H (0.0-0.4) th/mm3 BUN 52 H (7-18) mg/dL Creatinine 1.01 H (0.50-1.00) mg/dL Estimated GFR 65 L (>89) mL/min Random Glucose 154 H (74-106) mg/dL Calcium 8.4 L (8.5-10.1) mg/dL Total Bilirubin Less than 0.1 L (0.2-1.0) mg/dL Albumin 2.8 L (3.4-5.0) g/dL Short CBC 03/10/18 Range/Units 08:45 WBC 16.7 H (4.0-11.0) th/mm3 Hgb 8.7 L (11.6-15.3) gm/dL Hct 27.4 L (35.0-46.0) % Plt Count 332 (150-450) th/mm3 BMP 03/10/18 08:45 Sodium 142 Potassium 4.9 Chloride 104 Carbon Dioxide 28.9 BUN 52 H Creatinine 1.01 H Calcium 8.4 L Liver Function 03/10/18 Range/Units 08:45 Total Bilirubin Less than 0.1 L (0.2-1.0) mg/dL AST 17 (15-37) U/L ALT 14 (10-53) U/L Alkaline Phosphatase 89 (45-117) U/L Albumin 2.8 L (3.4-5.0) g/dL <Kiera Luu - 03/10/18 10:59> - Imaging Impressions Chest X-Ray 03/10/18 08:30 CONCLUSION: 1. No free air is visualized. There is mild atelectasis at the lung bases related to the under inflation. 2. Severe left glenohumeral joint osteoarthritis. <Kiera Luu - 03/10/18 10:59> Caprini VTE Risk Assessment Caprini VTE Risk Assessment: Moderate/High Risk (score >= 2) <Kiera Luu - 03/10/18 12:22> Caprini Risk Assessment Model: Point Value = 1 Point Value = 2 Point Value = 3 Point Value = 5 Age 41-60 Minor surgery BMI > 25 kg/m2 Swollen legs Varicose veins or History of unexplained or recurrent spontaneous Oral contraceptives or hormone replacement Sepsis (< 1 month) Serious lung disease, including pneumonia (< 1 month) Abnormal pulmonary function Acute myocardial infarction Congestive heart failure (< 1 month) History of inflammatory bowel disease Medical patient at bed rest Age 61-74 Arthroscopic surgery Major open surgery (> 45 min) Laparoscopic surgery (> 45 min) Malignancy Confined to bed (> 72 hours) Immobilizing plaster cast Central venous access Age >= 75 History of VTE Family history of VTE Factor V Leiden Prothrombin [id number] Lupus anticoagulant Anticardiolipin antibodies Elevated serum homocysteine Heparin-induced thrombocytopenia Other congenital or acquired thrombophilia Stroke (< 1 month) Elective arthroplasty Hip, pelvis, or leg fracture Acute spinal cord injury (< 1 month) <Apurva Case - 03/11/18 13:22> Point Value = 1 Point Value = 2 Point Value = 3 Point Value = 5 Age 41-60 Minor surgery BMI > 25 kg/m2 Swollen legs Varicose veins or History of unexplained or recurrent spontaneous Oral contraceptives or hormone replacement Sepsis (< 1 month) Serious lung disease, including pneumonia (< 1 month) Abnormal pulmonary function Acute myocardial infarction Congestive heart failure (< 1 month) History of inflammatory bowel disease Medical patient at bed rest Age 61-74 Arthroscopic surgery Major open surgery (> 45 min) Laparoscopic surgery (> 45 min) Malignancy Confined to bed (> 72 hours) Immobilizing plaster cast Central venous access Age >= 75 History of VTE Family history of VTE Factor V Leiden Prothrombin [id number] Lupus anticoagulant Anticardiolipin antibodies Elevated serum homocysteine Heparin-induced thrombocytopenia Other congenital or acquired thrombophilia Stroke (< 1 month) Elective arthroplasty Hip, pelvis, or leg fracture Acute spinal cord injury (< 1 month) <Kiera Luu - 03/10/18 10:59> Prophylaxis Regimen: Total Risk Factor Score Risk Level Prophylaxis Regimen 0-1 Low Early ambulation 2 Moderate Order ONE of the following: *Sequential Compression Device (SCD) *Heparin 5000 units SQ BID 3-4 Higher Order ONE of the following medications: *Heparin 5000 units SQ TID *Enoxaparin/Lovenox 40 mg SQ daily (WT < 150 kg, CrCl > 30 mL/min) *Enoxaparin/Lovenox 30 mg SQ daily (WT < 150 kg, CrCl > 10-29 mL/min) *Enoxaparin/Lovenox 30 mg SQ BID (WT < 150 kg, CrCl > 30 mL/min) AND/OR *Sequential Compression Device (SCD) 5 or more Highest Order ONE of the following medications: *Heparin 5000 units SQ TID (Preferred with Epidurals) *Enoxaparin/Lovenox 40 mg SQ daily (WT < 150 kg, CrCl > 30 mL/min) *Enoxaparin/Lovenox 30 mg SQ daily (WT < 150 kg, CrCl > 10-29 mL/min) *Enoxaparin/Lovenox 30 mg SQ BID (WT < 150 kg, CrCl > 30 mL/min) AND *Sequential Compression Device (SCD) <Apurva Case - 03/11/18 13:22> Total Risk Factor Score Risk Level Prophylaxis Regimen 0-1 Low Early ambulation 2 Moderate Order ONE of the following: *Sequential Compression Device (SCD) *Heparin 5000 units SQ BID 3-4 Higher Order ONE of the following medications: *Heparin 5000 units SQ TID *Enoxaparin/Lovenox 40 mg SQ daily (WT < 150 kg, CrCl > 30 mL/min) *Enoxaparin/Lovenox 30 mg SQ daily (WT < 150 kg, CrCl > 10-29 mL/min) *Enoxaparin/Lovenox 30 mg SQ BID (WT < 150 kg, CrCl > 30 mL/min) AND/OR *Sequential Compression Device (SCD) 5 or more Highest Order ONE of the following medications: *Heparin 5000 units SQ TID (Preferred with Epidurals) *Enoxaparin/Lovenox 40 mg SQ daily (WT < 150 kg, CrCl > 30 mL/min) *Enoxaparin/Lovenox 30 mg SQ daily (WT < 150 kg, CrCl > 10-29 mL/min) *Enoxaparin/Lovenox 30 mg SQ BID (WT < 150 kg, CrCl > 30 mL/min) AND *Sequential Compression Device (SCD) <Kiera Luu - 03/10/18 10:59> Assessment and Plan - Assessment (1) GI bleed Code(s): K92.2 - Gastrointestinal hemorrhage, unspecified Status: Acute (2) Conjunctivitis Code(s): H10.9 - Unspecified conjunctivitis Status: Acute (3) COPD (chronic obstructive pulmonary disease) Code(s): J44.9 - Chronic obstructive pulmonary disease, unspecified Status: Chronic (4) HTN (hypertension) Code(s): I10 - Essential (primary) hypertension Status: Chronic (5) Dementia Code(s): F03.90 - Unspecified dementia without behavioral disturbance Status: Chronic (6) Normocytic anemia Code(s): D64.9 - Anemia, unspecified Status: Chronic (7) Nutrition, metabolism, and development symptoms Code(s): R63.8 - Other symptoms and signs concerning food and fluid intake Status: Acute (8) DVT prophylaxis Status: Acute <Apurva Case Santa - 03/11/18 13:22> (1) GI bleed Code(s): K92.2 - Gastrointestinal hemorrhage, unspecified Status: Acute Plan: Normal colored blood per rectum that started overnight. Patient tachycardic upon admission. Hgb on admission is 8.7. Status post 2 units PRBCs in the ED. H&H's every 6 hours GI consulted, appreciate recommendations -EGD/colonoscopy in the morning -GoLYTELY through G-tube NS at 120 mLs/hour Zofran 4 mg IV every 6 hours as needed for nausea (2) Conjunctivitis Code(s): H10.9 - Unspecified conjunctivitis Status: Acute Plan: Conjunctivitis of the right eye. 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 Per [facility] nursing staff it is to be cleaned once a month. -Erythromycin ophthalmic ointment QID (3) COPD (chronic obstructive pulmonary disease) Code(s): J44.9 - Chronic obstructive pulmonary disease, unspecified Status: Chronic Plan: Continue at home medications: -Albuterol nebs -Symbicort inhaler (4) HTN (hypertension) Code(s): I10 - Essential (primary) hypertension Status: Chronic Plan: Continue at home medications: -Amlodipine 10 mg G-tube daily -Metoprolol 25 mg G-tube daily (5) Dementia Code(s): F03.90 - Unspecified dementia without behavioral disturbance Status: Chronic Plan: Patient with history of dementia. Unable to give consent for procedure tomorrow. Will likely be done as emergently. Patient on risperidone 0.5 mg G-tube twice daily and melatonin 5 mg p.o. at bedtime for sleep (6) Normocytic anemia Code(s): D64.9 - Anemia, unspecified Status: Chronic Plan: CBC reveals a normocytic anemia. Likely from acute blood loss. However, this seems to be chronic for her as her hemoglobin in August was 8.9. Her last creatinine was WNL so likely not from chronic kidney disease. -Continue to monitor (7) Nutrition, metabolism, and development symptoms Code(s): R63.8 - Other symptoms and signs concerning food and fluid intake Status: Acute Plan: Fluids: NS @ 120ml/hr Electrolytes: monitor and replete as needed Nutrition: Will restart regular nutrition schedule tomorrow after procedure. Patient receives most of her nutrition through her G-tube and only gets p.o. for pleasure foods (i.e. pudding). Schedule is Jevity 1.5 at 79 mL/hour off 3 PM on at 9 PM. 210 mL's of water every 4 hours and 30 mL's in between each medication. GI Prophylaxis: Protonix 40 mg IV daily (8) DVT prophylaxis Status: Acute Plan: DVT Prophylaxis: Early ambulation. bilateral SCDs <Kiera Luu - 03/10/18 17:22> - Assessment and Plan 77-year-old -[place] female with PMH of COPD, dementia, hypertension, glaucoma admitted for GI bleed. GI is consulted. Planning for EGD/colonoscopy on tomorrow. <Kiera Luu 03/10/18 17:19> Discussed Condition With: Dr. Case, Dr. Thao <Kiera Luu - 03/10/18 17:19> Discharge Planning: Pending clinical course, likely back to [facility] <Kiera Luu 03/10/18 17:19> - Attending Attestation The exam, history, and the medical decision-making described in the above note were completed with the assistance of the resident physician. I reviewed and agree with the findings presented. I attest that I had a [id number] encounter with the patient on the same day, and personally performed and documented my assessment and findings in the medical record. Ms. Vines was seen by me up in her room on the day of admission. She is pleasantly demented and is consequently a very poor historian. We were unable to reach any relative or decision maker including her daughter. <Apurva Case - 03/11/18 13:22> <Kiera Luu G - Last Filed: 03/10/18 17:22> (2) Conjunctivitis Qualifiers: Conjunctivitis type: acute Acute conjunctivitis type: unspecified Laterality : right Qualified Code(s): H10.31 - Unspecified acute conjunctivitis, right eye <Apurva Case M - Last Filed: 03/11/18 13:22> (1) GI bleed Qualifiers: GI bleed type/associated pathology: unspecified gastrointestinal hemorrhage type Qualified Code(s): K92.2 - Gastrointestinal hemorrhage, unspecified (2) Conjunctivitis Qualifiers: Conjunctivitis type: acute Acute conjunctivitis type: unspecified Laterality : right Qualified Code(s): H10.31 - Unspecified acute conjunctivitis, right eye (3) COPD (chronic obstructive pulmonary disease) Qualifiers: COPD type: unspecified COPD Qualified Code(s): J44.9 - Chronic obstructive pulmonary disease, unspecified (4) HTN (hypertension) Qualifiers: Hypertension type: essential hypertension Qualified Code(s): I10 - Essential (primary) hypertension (5) Dementia Qualifiers: Dementia type: unspecified type <Kiera Luu - Last Filed: 03/10/18 17:22> (2) Conjunctivitis Qualifiers: Conjunctivitis type: acute Acute conjunctivitis type: unspecified Laterality : right Qualified Code(s): H10.31 - Unspecified acute conjunctivitis, right eye <Apurva Case - Last Filed: 03/11/18 13:22> (1) GI bleed Qualifiers: GI bleed type/associated pathology: unspecified gastrointestinal hemorrhage type Qualified Code(s): K92.2 - Gastrointestinal hemorrhage, unspecified (2) Conjunctivitis Qualifiers: Conjunctivitis type: acute Acute conjunctivitis type: unspecified Laterality : right Qualified Code(s): H10.31 - Unspecified acute conjunctivitis, right eye (3) COPD (chronic obstructive pulmonary disease) Qualifiers: COPD type: unspecified COPD Qualified Code(s): J44.9 - Chronic obstructive pulmonary disease, unspecified (4) HTN (hypertension) Qualifiers: Hypertension type: essential hypertension Qualified Code(s): I10 - Essential (primary) hypertension (5) Dementia Qualifiers: Dementia type: unspecified type
[2018-03-10] MEDS: Sod Chloride 0.9% Inj 1,000 ML IV.CONT SCH (11:58)
[2018-03-10] MEDS: Metoprolol Tartrate 25 MG Tablet G-TUBE SCH (13:05)
[2018-03-10] MEDS: amLODIPine 10 MG Tablet G-TUBE SCH (13:06)
--- NOTE | 2018-03-10 13:47 | P.CONGI ---
History of Present Illness Consult date: 03/10/18 Chief complaint: GI Bleed History of Present Illness: This is a 77-year-old -[place] female with a past medical history of COPD, dementia who was brought from [facility] for evaluation of bloody stools that started last night. Pt with dementia, denies any GI issues, not aware of bleeding. She has PEG tube in place. Currently receiving blood transfusion. [place] colored blood noted on the pad, per nurse, pt has been consistently bleeding since arrival. hgb on arrival is 8.7. According to EMR, "pt's daughter, Deborah Segura, at [phone] and , but both numbers are out of service. 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 <Ronnell Bundy - Last Filed: 03/14/18 20:56> Review of Systems Comments: Pt with dementia, not able to provide accurate history <Ronnell Bundy - Last Filed: 03/14/18 20:56> [facility] - Medical History Medical History: Medical History (Last Updated 03/10/18 @ 08:37 by Skylar Robertson) COPD (chronic obstructive pulmonary disease) Dementia Dysphagia Glaucoma Gout Hypertension <Luiz Wright - Last Filed: 03/10/18 23:20> - History History Provided By: Patient - Medical History Medical History: Medical History (Last Updated 03/10/18 @ 08:37 by Skylar Robertson) COPD (chronic obstructive pulmonary disease) Dementia Dysphagia Glaucoma Gout Hypertension - Tobacco History Smoking Status: Former smoker Tobacco Type: Cigarettes - Alcohol History How Often Do You Have a Drink Containing Alcohol: Never - Substance Use History Substance History: No History of Abuse - Immunization History Tetanus Immunization: Unsure Hx Influenza Vaccine This Season: Unable to Assess <Ronnell Bundy - Last Filed: 03/14/18 20:56> Medications and Allergies Active Medications: Active Medications Albuterol (Albuterol Neb (Prn)) 0.63 mg NEB Q2HR NEB PRN PRN Reason: Shortness Of Breath Amlodipine Besylate (Norvasc) 10 mg G-TUBE DAILY [facility] Last Admin: 03/10/18 13:06 Dose: 10 mg Budesonide/Formoterol Fumarate (Symbicort 160/4.5 Mcg Inh) 2 puff INH BID [facility] Last Admin: 03/10/18 13:52 Dose: 2 puff Cetirizine HCl (Zyrtec) 10 mg G-TUBE DAILY [facility] Erythromycin (Ilotycin 0.5% Opth Oint) 1 applicatio RIGHT EYE QID [facility] Last Admin: 03/10/18 21:46 Dose: 1 applicatio Sodium Chloride (Ns Inj) 250 mls @ 15 mls/hr IV.SIG ONCE [facility] Stop: 03/11/18 02:39 Last Admin: 03/10/18 12:51 Dose: 15 mls/hr Sodium Chloride (Ns Inj) 1,000 mls @ 120 mls/hr IV.CONT .Q8H20M [facility] Last Admin: 03/10/18 11:58 Dose: 120 mls/hr Melatonin (Melatonin) 5 mg PO HS [facility] Last Admin: 03/10/18 21:46 Dose: Not Given Metoprolol Tartrate (Lopressor) 12.5 mg G-TUBE DAILY [facility] Last Admin: 03/10/18 13:05 Dose: 12.5 mg Miscellaneous (Pill Splitter) 1 each OTHER UNSCH PRN PRN Reason: SEE LABEL COMMENTS Ondansetron HCl (Zofran Inj) 4 mg IV.PUSH Q6H PRN PRN Reason: NAUSEA Pantoprazole Sodium (Protonix Inj) 40 mg IV.PUSH DAILY [facility] Risperidone (Risperdal) 0.5 mg G-TUBE BID [facility] Last Admin: 03/10/18 13:41 Dose: 0.5 mg Sodium Chloride (Ns Flush) 2 ml IV.FLUSH BID [facility] Last Admin: 03/10/18 21:44 Dose: 2 ml Sodium Chloride (Ns Flush) 2 ml IV.FLUSH PRN PRN PRN Reason: FLUSH AFTER USING IV ACCESS <Luiz Wright E - Last Filed: 03/10/18 23:20> Active Medications: Active Medications Albuterol (Albuterol Neb (Prn)) 0.63 mg NEB Q2HR NEB PRN PRN Reason: Shortness Of Breath Amlodipine Besylate (Norvasc) 10 mg G-TUBE DAILY [facility] Last Admin: 03/10/18 13:06 Dose: 10 mg Budesonide/Formoterol Fumarate (Symbicort 160/4.5 Mcg Inh) 2 puff INH BID [facility] Cetirizine HCl (Zyrtec) 10 mg G-TUBE DAILY [facility] Sodium Chloride (Ns Inj) 250 mls @ 15 mls/hr IV.SIG ONCE [facility] Stop: 03/11/18 02:39 Last Admin: 03/10/18 12:51 Dose: 15 mls/hr Sodium Chloride (Ns Inj) 1,000 mls @ 120 mls/hr IV.CONT .Q8H20M [facility] Last Admin: 03/10/18 11:58 Dose: 120 mls/hr Melatonin (Melatonin) 5 mg PO HS [facility] Metoprolol Tartrate (Lopressor) 12.5 mg G-TUBE DAILY [facility] Last Admin: 03/10/18 13:05 Dose: 12.5 mg Miscellaneous (Pill Splitter) 1 each OTHER UNSCH PRN PRN Reason: SEE LABEL COMMENTS Ondansetron HCl (Zofran Inj) 4 mg IV.PUSH Q6H PRN PRN Reason: NAUSEA Pantoprazole Sodium (Protonix Inj) 40 mg IV.PUSH DAILY [facility] Risperidone (Risperdal) 0.5 mg G-TUBE BID [facility] Sodium Chloride (Ns Flush) 2 ml IV.FLUSH BID [facility] Sodium Chloride (Ns Flush) 2 ml IV.FLUSH PRN PRN PRN Reason: FLUSH AFTER USING IV ACCESS <Ronnell Bundy - Last Filed: 03/14/18 20:56> Allergies Allergy/AdvReac Type Severity Reaction Status Date / Time No Known Allergies Allergy Verified 03/10/18 08:55 Home Medications Medication Instructions Recorded Confirmed Type albuterol sulfate 0.63 mg INHALATION Q2HR PRN 03/10/18 03/10/18 History amlodipine 10 mg FEEDING TUBE DAILY 03/10/18 03/10/18 History budesonide-formoterol [Symbicort] 2 puff INHALATION BID 03/10/18 03/10/18 History cetirizine [Zyrtec] 10 mg FEEDING TUBE DAILY 03/10/18 03/10/18 History ipratropium-albuterol 3 ml INHALATION Q4HR PRN 03/10/18 03/10/18 History magnesium hydroxide [Milk of 30 ml FEEDING TUBE DAILY PRN 03/10/18 03/10/18 History Magnesia] melatonin 3 mg FEEDING TUBE HS 03/10/18 03/10/18 History metoprolol tartrate 12.5 mg FEEDING TUBE DAILY 03/10/18 03/10/18 History risperidone [Risperdal] 0.5 mg FEEDING TUBE BID 03/10/18 03/10/18 History Exam Vital signs: Vital Signs 03/10/18 08:30 03/10/18 08:40 03/10/18 11:23 Temperature 98.9 F 98.6 F Pulse Rate 112 H 97 H Respiratory Rate 20 20 18 Blood Pressure 184/99 H 184/99 H 149/79 H Pulse Oximetry 98 98 96 03/10/18 12:05 03/10/18 12:40 03/10/18 12:59 Temperature 98 F 98.1 F Pulse Rate 98 H 96 H 97 H Respiratory Rate 16 18 14 Blood Pressure 154/75 H 156/72 H 176/88 H Pulse Oximetry 97 96 03/10/18 13:46 03/10/18 14:34 03/10/18 15:00 Temperature 98.4 F 98.2 F Pulse Rate 90 65 Respiratory Rate 16 14 Blood Pressure 170/98 H 149/70 H 180/96 H Pulse Oximetry 97 94 L 03/10/18 15:40 03/10/18 15:53 03/10/18 17:23 Temperature 98.0 F Pulse Rate 68 94 H 95 H Respiratory Rate 18 17 18 Blood Pressure 180/96 H 184/91 H 148/70 H Pulse Oximetry 95 92 L 03/10/18 20:00 Temperature 98 F Pulse Rate 96 H Respiratory Rate 20 Blood Pressure 139/87 Pulse Oximetry 93 L Intake & Output 03/10/18 03/10/18 03/11/18 06:59 18:59 06:59 Intake Total 850 / 850 Output Total 0 / 0 Balance 850 / 850 Weight 78 kg Intake: Water Bolus Amount 50 / 50 Other 400 / 400 Rbc As-3 Leukoreduced Unit 400 / 400 [id number] Intake (Blood Product) Amt 400 / 400 Rbc As-3 Leukoreduced Unit 400 / 400 [id number] Rbc As-3 Leukoreduced Unit 0 / 0 [id number] Output: Gastric Drainage 0 / 0 Pre-Hospital Gastrostomy Tube ( 0 / 0 PEG) Other: # Voids 1 Date of Last Bowel Movement 03/10/18 # Bowel Movements 1 <Luiz Wright E - Last Filed: 03/10/18 23:20> Vital signs: Vital Signs 03/10/18 08:30 03/10/18 08:40 03/10/18 11:23 Temperature 98.9 F 98.6 F Pulse Rate 112 H 97 H Respiratory Rate 20 20 18 Blood Pressure 184/99 H 184/99 H 149/79 H Pulse Oximetry 98 98 96 03/10/18 12:05 03/10/18 12:40 03/10/18 12:59 Temperature 98 F 98.1 F Pulse Rate 98 H 96 H 97 H Respiratory Rate 16 14 14 Blood Pressure 154/75 H 183/86 H 176/88 H Pulse Oximetry 97 96 Intake & Output 03/09/18 03/10/18 03/10/18 18:59 06:59 18:59 Intake Total 50 / 50 Output Total 0 / 0 Balance 50 / 50 Weight 78 kg Intake: Water Bolus Amount 50 / 50 Intake (Blood Product) Amt 0 / 0 Rbc As-3 Leukoreduced Unit 0 / 0 [id number] Output: Gastric Drainage 0 / 0 Pre-Hospital Gastrostomy Tube ( 0 / 0 PEG) Other: Date of Last Bowel Movement 03/10/18 - Constitutional no acute distress - Routine HEENT Exam Head: Present: normocephalic Comments: infected right eye - Routine Respiratory Exam Present: CTA bilaterally - Routine Cardiovascular Exam Present: RRR - Routine Abdominal Exam Present: soft, normoactive bowel sounds. Absent: tenderness, distended Comments: PEG tube - Routine Skin Exam Present: intact, dry. Absent: cyanosis - Routine Neurological Exam Present: alert <TatiananievesRonnell - Last Filed: 03/14/18 20:56> Results - Labs CBC & Chem 7: 03/10/18 20:00 03/10/18 08:45 Labs: Laboratory Results - last 24 hr 03/10/18 03/10/18 03/10/18 08:15 08:45 08:45 WBC 16.7 H RBC 3.18 L Hgb 8.7 L Hct 27.4 L MCV 86.2 MCH 27.3 MCHC 31.7 L RDW 19.2 H Plt Count 332 MPV 9.0 Neut % (Auto) 75.3 H Lymph % (Auto) 14.6 [place] % (Auto) 5.8 Eos % (Auto) 3.4 Baso % (Auto) 0.9 Neut # (Auto) 12.5 H Lymph # (Auto) 2.4 [place] # (Auto) 1.0 H Eos # (Auto) 0.6 H Baso # (Auto) 0.1 WBC Differential . Differential Comment Auto diff final PT 9.9 INR 1.0 APTT 27.1 Sodium Potassium Chloride Carbon Dioxide Anion Gap BUN Creatinine Estimated GFR Random Glucose Calcium Total Bilirubin AST ALT Alkaline Phosphatase Total Protein Albumin Blood Type AB Positive Blood Type Recheck Required Antibody Screen Negative MTS Gel Crossmatch 03/10/18 03/10/18 03/10/18 08:45 09:12 20:00 WBC RBC Hgb 11.0 L D Hct 32.8 L MCV MCH MCHC RDW Plt Count MPV Neut % (Auto) Lymph % (Auto) [place] % (Auto) Eos % (Auto) Baso % (Auto) Neut # (Auto) Lymph # (Auto) [place] # (Auto) Eos # (Auto) Baso # (Auto) WBC Differential Differential Comment PT INR APTT Sodium 142 Potassium 4.9 Chloride 104 Carbon Dioxide 28.9 Anion Gap 9 BUN 52 H Creatinine 1.01 H Estimated GFR 65 L Random Glucose 154 H Calcium 8.4 L Total Bilirubin Less than 0.1 L AST 17 ALT 14 Alkaline Phosphatase 89 Total Protein 7.0 Albumin 2.8 L Blood Type Blood Type Recheck Antibody Screen MTS Gel Crossmatch See Detail 03/10/18 20:00 WBC 15.9 H RBC 3.86 L Hgb 10.9 L Hct 33.5 L MCV 86.9 MCH 28.4 MCHC 32.6 RDW 17.0 Plt Count 270 MPV 9.1 Neut % (Auto) 78.0 H Lymph % (Auto) 13.9 [place] % (Auto) 5.6 Eos % (Auto) 2.1 Baso % (Auto) 0.4 Neut # (Auto) 12.4 H Lymph # (Auto) 2.2 [place] # (Auto) 0.9 Eos # (Auto) 0.3 Baso # (Auto) 0.1 WBC Differential . Differential Comment Auto diff final PT INR APTT Sodium Potassium Chloride Carbon Dioxide Anion Gap BUN Creatinine Estimated GFR Random Glucose Calcium Total Bilirubin AST ALT Alkaline Phosphatase Total Protein Albumin Blood Type Blood Type Recheck Antibody Screen MTS Gel Crossmatch - Imaging Impressions Chest X-Ray 03/10/18 08:30 CONCLUSION: 1. No free air is visualized. There is mild atelectasis at the lung bases related to the under inflation. 2. Severe left glenohumeral joint osteoarthritis. <Luiz Wright E - Last Filed: 03/10/18 23:20> - Labs CBC & Chem 7: 03/12/18 06:20 03/12/18 06:20 Labs: Laboratory Results - last 24 hr 03/10/18 03/10/18 03/10/18 08:15 08:45 08:45 WBC 16.7 H RBC 3.18 L Hgb 8.7 L Hct 27.4 L MCV 86.2 MCH 27.3 MCHC 31.7 L RDW 19.2 H Plt Count 332 MPV 9.0 Neut % (Auto) 75.3 H Lymph % (Auto) 14.6 [place] % (Auto) 5.8 Eos % (Auto) 3.4 Baso % (Auto) 0.9 Neut # (Auto) 12.5 H Lymph # (Auto) 2.4 [place] # (Auto) 1.0 H Eos # (Auto) 0.6 H Baso # (Auto) 0.1 WBC Differential . Differential Comment Auto diff final PT 9.9 INR 1.0 APTT 27.1 Sodium Potassium Chloride Carbon Dioxide Anion Gap BUN Creatinine Estimated GFR Random Glucose Calcium Total Bilirubin AST ALT Alkaline Phosphatase Total Protein Albumin Blood Type AB Positive Blood Type Recheck Required Antibody Screen Negative MTS Gel Crossmatch 03/10/18 03/10/18 08:45 09:12 WBC RBC Hgb Hct MCV MCH MCHC RDW Plt Count MPV Neut % (Auto) Lymph % (Auto) [place] % (Auto) Eos % (Auto) Baso % (Auto) Neut # (Auto) Lymph # (Auto) [place] # (Auto) Eos # (Auto) Baso # (Auto) WBC Differential Differential Comment PT INR APTT Sodium 142 Potassium 4.9 Chloride 104 Carbon Dioxide 28.9 Anion Gap 9 BUN 52 H Creatinine 1.01 H Estimated GFR 65 L Random Glucose 154 H Calcium 8.4 L Total Bilirubin Less than 0.1 L AST 17 ALT 14 Alkaline Phosphatase 89 Total Protein 7.0 Albumin 2.8 L Blood Type Blood Type Recheck Antibody Screen MTS Gel Crossmatch See Detail - Imaging Impressions Chest X-Ray 03/10/18 08:30 CONCLUSION: 1. No free air is visualized. There is mild atelectasis at the lung bases related to the under inflation. 2. Severe left glenohumeral joint osteoarthritis. <Ronnell Bundy - Last Filed: 03/14/18 20:56> Assessment and Plan - Attending Attestation Patient seen and examined Agree with above Continue with current supportive care Monitor lab We will proceed with an EGD and a colonoscopy tomorrow <Luiz Wright - Last Filed: 03/10/18 23:20> - Plan - Acute GI bleed- This is a 77-year-old -[place] female with a past medical history of COPD, dementia who was brought from [facility] for evaluation of bloody stools that started last night. Pt with dementia, denies any GI issues, not aware of bleeding. She has PEG tube in place. Currently receiving blood transfusion. [place] colored blood noted on the pad , per nurse, pt has been consistently bleeding since arrival. hgb on arrival is 8.7. According to EMR, "pt's daughter, Deborah Segura, at [phone] and , but both numbers are out of service. 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 - Acute renal failure- possibly secondary to above - Dementia - Copd Plan: - EGD/colonoscopy in the am - Golytely today through PEG tube - Obtain consents if able to reach family, other lay, this will be done on emergent basis, pt is actively bleeding - Serial hh - Transfuse as needed - Cont protonix - Notify GI for active bleed - Consider bleeding scan - Supportive care - Pt seen and examined by dr. Wright and myself and this note is written on his behalf. <Ronnell Bundy - Last Filed: 03/14/18 20:56>
[2018-03-10] MEDS: Budesonide-Formoterol 160/4.5 MCG 6 GM Inhaler INH SCH (13:52)
[2018-03-10] MEDS ORDERED: PEG 3350/E-Lyte Soln 4000 ML Bottle PO ONE (14:00)
[2018-03-10] MEDS: Erythromycin 0.5% Opth Oint 3.5 GM Tube RIGHT EYE SCH ×2 (17:50→21:46)
[2018-03-10 21:35] LABS: Hematocrit 32.8 % (35.0-46.0)
[2018-03-10 21:41] LABS: Baso # (Auto) 0.1 th/mm3 (0.0-0.2); Baso % (Auto) 0.4 % (0.0-2.0); Eos # (Auto) 0.3 th/mm3 (0.0-0.4); Eos % (Auto) 2.1 % (0.0-4.0); Hematocrit 33.5 % (35.0-46.0); Hemoglobin 10.9 gm/dL (11.6-15.3); Lymph # (Auto) 2.2 th/mm3 (1.0-4.8); Lymph % (Auto) 13.9 % (9.0-44.0); Mean Corpuscular HGB Conc 32.6 % (32.0-36.0); Mean Corpuscular Hemoglobin 28.4 pg (27.0-34.0); Mean Corpuscular Volume 86.9 fL (80.0-100.0); Mean Platelet Volume 9.1 fL (7.0-11.0); Mono # (Auto) 0.9 th/mm3 (0.0-0.9); Mono % (Auto) 5.6 % (0.0-8.0); Neut # (Auto) 12.4 th/mm3 (1.8-7.7); Platelet Count 270 th/mm3 (150-450); Red Blood Count 3.86 mil/mm3 (4.00-5.30); White Blood Count 15.9 th/mm3 (4.0-11.0)
[2018-03-10] MEDS: Melatonin 5 MG Tablet PO SCH (21:46)
[2018-03-11 04:33] LABS: Calcium 7.9 mg/dL (8.5-10.1); Carbon Dioxide 31.1 meq/L (21.0-32.0); Potassium 4.5 meq/L (3.5-5.1)
[2018-03-11] MEDS: Sod Chloride 0.9% Inj 1,000 ML IV.CONT SCH ×5 (06:47→20:57)
[2018-03-11] MEDS: Budesonide-Formoterol 160/4.5 MCG 6 GM Inhaler INH SCH ×3 (06:49→23:43)
[2018-03-11 08:19] LABS: Hematocrit 30.8 % (35.0-46.0); Hemoglobin 9.9 gm/dL (11.6-15.3); Mean Corpuscular HGB Conc 32.3 % (32.0-36.0); Mean Corpuscular Hemoglobin 27.9 pg (27.0-34.0); Mean Corpuscular Volume 86.6 fL (80.0-100.0); Platelet Count 235 th/mm3 (150-450); Red Blood Count 3.56 mil/mm3 (4.00-5.30); Red Cell Distribution Width 17.4 % (11.6-17.2); White Blood Count 13.3 th/mm3 (4.0-11.0)
[2018-03-11] MEDS: amLODIPine 10 MG Tablet G-TUBE SCH (09:15)
[2018-03-11] MEDS: Metoprolol Tartrate 25 MG Tablet G-TUBE SCH (09:15)
[2018-03-11] MEDS: Erythromycin 0.5% Opth Oint 3.5 GM Tube RIGHT EYE SCH ×4 (09:16→20:57)
[2018-03-11] MEDS: Pantoprazole Inj 40 MG Vial IV.PUSH SCH (09:16)
--- NOTE | 2018-03-11 10:36 | P.HPFP ---
History of Present Illness Primary Care Physician: Noman Yu MD Chief Complaint: bloody stools History of Present Illness: This is a 77-year-old -[place] female with a past medical history of COPD retention, glaucoma, dementia presenting to the ED with bloody stools. Patient states that she was in the retirement and then brought to the hospital. She was unable to say why she is here. She states that she has no abdominal pain, she is eating and drinking okay, goes to the bathroom by herself. She states that her stool is brown, no signs of blood, no diarrhea. According to the retirement staff at [facility] she is usually incontinent of stool. Nursing noticed last night that she had bloody stools while changing her , probably 1 or 2. 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 ED nursing staff-patient was gushing maroon colored stools while in the ED she had to be changed 5 times. Tried to contact pt's daughter, Deborah Segura, at [phone] and , but both numbers are out of service. [facility] also tried to contact daughter at these numbers, but were also unsuccessful. PMH: pt denies any According to [facility] records patient has: COPD Hypertension Glaucoma Muscle weakness Gout Cognitive communication deficit Alzheimer's disease Insomnia Difficulty walking Dysphasia, oropharyngeal phase Behavioral disturbance Anxiety disorder Rheumatoid arthritis PSH: pt denies Social hx: Unable to tell name of retirement stated that she does not have any children, later she stated that her daughter' s name was also Shasha Jasmyn denies tobacco, alcohol, or illicit drug use - Diagnosis (1) GI bleed (2) Conjunctivitis (3) COPD (chronic obstructive pulmonary disease) (4) HTN (hypertension) (5) Dementia (6) Normocytic anemia (7) Nutrition, metabolism, and development symptoms (8) DVT prophylaxis Inpatient Certification: I certify that the inpatient services were ordered in accordance with Medicare regulations governing the order. This includes certification that hospital inpatient services are reasonable and necessary and in the case of services not specified as inpatient-only under 42 CFR 419.22(n), that they are appropriately provided as inpatient services in accordance to with the 2-midnight benchmark under 43 CFR 412.3(e) Estimated Total Length of Stay (Days): 4 Plans for Post Hospital Care: Not yet determined Review of Systems unobtainable due to mental condition PMFSH - History History Provided By: Patient - Medical History Medical History: Medical History (Last Updated 03/10/18 @ 08:37 by Skylar Robertson) COPD (chronic obstructive pulmonary disease) Dementia Dysphagia Glaucoma Gout Hypertension - Tobacco History Smoking Status: Former smoker Tobacco Type: Cigarettes - Alcohol History How Often Do You Have a Drink Containing Alcohol: Never - Substance Use History Substance History: No History of Abuse - Immunization History Tetanus Immunization: Unsure Hx Influenza Vaccine This Season: Unable to Assess Medications and Allergies Active Medications: Active Medications Albuterol (Albuterol Neb (Prn)) 0.63 mg NEB Q2HR NEB PRN PRN Reason: Shortness Of Breath Amlodipine Besylate (Norvasc) 10 mg G-TUBE DAILY [facility] Last Admin: 03/11/18 09:15 Dose: 10 mg Budesonide/Formoterol Fumarate (Symbicort 160/4.5 Mcg Inh) 2 puff INH BID [facility] Last Admin: 03/11/18 09:25 Dose: Not Given Cetirizine HCl (Zyrtec) 10 mg G-TUBE DAILY [facility] Last Admin: 03/11/18 09:16 Dose: 10 mg Erythromycin (Ilotycin 0.5% Opth Oint) 1 applicatio RIGHT EYE QID [facility] Last Admin: 03/11/18 09:16 Dose: 1 applicatio Sodium Chloride (Ns Inj) 1,000 mls @ 120 mls/hr IV.CONT .Q8H20M [facility] Last Admin: 03/11/18 06:48 Dose: 120 mls/hr Melatonin (Melatonin) 5 mg PO HS [facility] Last Admin: 03/10/18 21:46 Dose: Not Given Metoprolol Tartrate (Lopressor) 12.5 mg G-TUBE DAILY [facility] Last Admin: 03/11/18 09:15 Dose: 12.5 mg Miscellaneous (Pill Splitter) 1 each OTHER UNSCH PRN PRN Reason: SEE LABEL COMMENTS Ondansetron HCl (Zofran Inj) 4 mg IV.PUSH Q6H PRN PRN Reason: NAUSEA Pantoprazole Sodium (Protonix Inj) 40 mg IV.PUSH DAILY [facility] Last Admin: 03/11/18 09:16 Dose: 40 mg Risperidone (Risperdal) 0.5 mg G-TUBE BID [facility] Last Admin: 03/11/18 09:16 Dose: 0.5 mg Sodium Chloride (Ns Flush) 2 ml IV.FLUSH BID [facility] Last Admin: 03/11/18 09:16 Dose: Not Given Sodium Chloride (Ns Flush) 2 ml IV.FLUSH PRN PRN PRN Reason: FLUSH AFTER USING IV ACCESS Allergies Allergy/AdvReac Type Severity Reaction Status Date / Time No Known Allergies Allergy Verified 03/10/18 08:55 Home Medications Medication Instructions Recorded Confirmed Type albuterol sulfate 0.63 mg INHALATION Q2HR PRN 03/10/18 03/10/18 History amlodipine 10 mg FEEDING TUBE DAILY 03/10/18 03/10/18 History budesonide-formoterol [Symbicort] 2 puff INHALATION BID 03/10/18 03/10/18 History cetirizine [Zyrtec] 10 mg FEEDING TUBE DAILY 03/10/18 03/10/18 History ipratropium-albuterol 3 ml INHALATION Q4HR PRN 03/10/18 03/10/18 History magnesium hydroxide [Milk of 30 ml FEEDING TUBE DAILY PRN 03/10/18 03/10/18 History Magnesia] melatonin 3 mg FEEDING TUBE HS 03/10/18 03/10/18 History meloxicam [Mobic] 7.5 mg FEEDING TUBE DAILY 03/10/18 03/10/18 History metoprolol tartrate 12.5 mg FEEDING TUBE DAILY 03/10/18 03/10/18 History risperidone [Risperdal] 0.5 mg FEEDING TUBE BID 03/10/18 03/10/18 History Exam Vital signs: Vital Signs 03/10/18 11:23 03/10/18 12:05 03/10/18 12:40 Temperature 98 F Pulse Rate 97 H 98 H 96 H Respiratory Rate 18 16 18 Blood Pressure 149/79 H 154/75 H 156/72 H Pulse Oximetry 96 97 03/10/18 12:59 03/10/18 13:46 03/10/18 14:34 Temperature 98.1 F 98.4 F Pulse Rate 97 H 90 Respiratory Rate 14 16 Blood Pressure 176/88 H 170/98 H 149/70 H Pulse Oximetry 96 97 03/10/18 15:00 03/10/18 15:40 03/10/18 15:53 Temperature 98.2 F Pulse Rate 65 68 94 H Respiratory Rate 14 18 17 Blood Pressure 180/96 H 180/96 H 184/91 H Pulse Oximetry 94 L 95 03/10/18 17:23 03/10/18 20:00 03/11/18 00:00 Temperature 98.0 F 98 F 98.2 F Pulse Rate 95 H 96 H 89 Respiratory Rate 18 20 20 Blood Pressure 148/70 H 139/87 147/70 H Pulse Oximetry 92 L 93 L 93 L 03/11/18 08:00 Temperature 97.6 F Pulse Rate 95 H Respiratory Rate 18 Blood Pressure 156/75 H Pulse Oximetry 96 Intake & Output 03/10/18 03/11/18 03/11/18 18:59 06:59 18:59 Intake Total 850 / 850 20 / 20 Output Total 0 / 0 Balance 850 / 850 20 / 20 Weight 78 kg 88.5 kg Intake: IV 20 / 20 NS Inj 250 ML @ 15 mls/hr IV. 20 / 20 SIG ONCE MONIE Rx#:[id number] Water Bolus Amount 50 / 50 Other 400 / 400 Rbc As-3 Leukoreduced Unit 400 / 400 [id number] Intake (Blood Product) Amt 400 / 400 Rbc As-3 Leukoreduced Unit 400 / 400 [id number] Rbc As-3 Leukoreduced Unit 0 / 0 [id number] Output: Gastric Drainage 0 / 0 Pre-Hospital Gastrostomy Tube ( 0 / 0 PEG) Other: # Voids 1 3 Date of Last Bowel Movement 03/10/18 03/10/18 # Bowel Movements 1 # Incontinent Bowel Movements 3 - Constitutional no acute distress, average body habitus, cooperative - Routine HEENT Exam Head: Present: normocephalic, atraumatic. Absent: facial swelling Eye: Present: periorbital swelling, implant. Absent: nystagmus, exophthalmos ENT: Present: mucous membranes moist, external ear normal - Routine Neck Exam Present: supple, full ROM - Routine Respiratory Exam Present: CTA bilaterally. Absent: accessory muscle use, rales, respiratory distress, rhonchi - Routine Cardiovascular Exam Present: RRR. Absent: murmur, gallop, rubs (limited exam as pt refused extended exam) - Routine Abdominal Exam Present: soft. Absent: tenderness, distended, rebound - Routine Extremities Exam Absent: cyanosis, clubbing, edema, tenderness, amputation - Routine Skin Exam Present: intact. Absent: cyanosis, erythema, wounds, rash, gangrene - Routine Neurological Exam Present: alert. Absent: oriented X3, sensory deficit, motor deficit Results - Labs Result diagrams: 03/11/18 07:41 03/11/18 03:18 Abnormal lab results 03/10/18 03/10/18 03/10/18 Range/Units 09:12 20:00 20:00 WBC 15.9 H (4.0-11.0) th/mm3 RBC 3.86 L (4.00-5.30) mil/mm3 Hgb 11.0 L D 10.9 L (11.6-15.3) gm/dL Hct 32.8 L 33.5 L (35.0-46.0) % RDW (11.6-17.2) % Neut % (Auto) 78.0 H (16.0-70.0) % Neut # (Auto) 12.4 H (1.8-7.7) th/mm3 BUN (7-18) mg/dL Estimated GFR (>89) mL/min Calcium (8.5-10.1) mg/dL MTS Gel Crossmatch See Detail 03/11/18 03/11/18 Range/Units 03:18 07:41 WBC 13.3 H (4.0-11.0) th/mm3 RBC 3.56 L (4.00-5.30) mil/mm3 Hgb 9.9 L (11.6-15.3) gm/dL Hct 30.8 L (35.0-46.0) % RDW 17.4 H (11.6-17.2) % Neut % (Auto) (16.0-70.0) % Neut # (Auto) (1.8-7.7) th/mm3 BUN 33 H (7-18) mg/dL Estimated GFR 79 L (>89) mL/min Calcium 7.9 L (8.5-10.1) mg/dL MTS Gel Crossmatch Short CBC 03/10/18 03/10/18 03/11/18 Range/Units 20:00 20:00 07:41 WBC 15.9 H 13.3 H (4.0-11.0) th/mm3 Hgb 11.0 L D 10.9 L 9.9 L (11.6-15.3) gm/dL Hct 32.8 L 33.5 L 30.8 L (35.0-46.0) % Plt Count 270 235 (150-450) th/mm3 [facility] 03/11/18 03:18 Sodium 144 Potassium 4.5 Chloride 107 Carbon Dioxide 31.1 BUN 33 H Creatinine 0.85 Calcium 7.9 L Caprini VTE Risk Assessment Caprini VTE Risk Assessment: Moderate/High Risk (score >= 2) Caprini Risk Assessment Model: Point Value = 1 Point Value = 2 Point Value = 3 Point Value = 5 Age 41-60 Minor surgery BMI > 25 kg/m2 Swollen legs Varicose veins or History of unexplained or recurrent spontaneous Oral contraceptives or hormone replacement Sepsis (< 1 month) Serious lung disease, including pneumonia (< 1 month) Abnormal pulmonary function Acute myocardial infarction Congestive heart failure (< 1 month) History of inflammatory bowel disease Medical patient at bed rest Age 61-74 Arthroscopic surgery Major open surgery (> 45 min) Laparoscopic surgery (> 45 min) Malignancy Confined to bed (> 72 hours) Immobilizing plaster cast Central venous access Age >= 75 History of VTE Family history of VTE Factor V Leiden Prothrombin [id number] Lupus anticoagulant Anticardiolipin antibodies Elevated serum homocysteine Heparin-induced thrombocytopenia Other congenital or acquired thrombophilia Stroke (< 1 month) Elective arthroplasty Hip, pelvis, or leg fracture Acute spinal cord injury (< 1 month) Prophylaxis Regimen: Total Risk Factor Score Risk Level Prophylaxis Regimen 0-1 Low Early ambulation 2 Moderate Order ONE of the following: *Sequential Compression Device (SCD) *Heparin 5000 units SQ BID 3-4 Higher Order ONE of the following medications: *Heparin 5000 units SQ TID *Enoxaparin/Lovenox 40 mg SQ daily (WT < 150 kg, CrCl > 30 mL/min) *Enoxaparin/Lovenox 30 mg SQ daily (WT < 150 kg, CrCl > 10-29 mL/min) *Enoxaparin/Lovenox 30 mg SQ BID (WT < 150 kg, CrCl > 30 mL/min) AND/OR *Sequential Compression Device (SCD) 5 or more Highest Order ONE of the following medications: *Heparin 5000 units SQ TID (Preferred with Epidurals) *Enoxaparin/Lovenox 40 mg SQ daily (WT < 150 kg, CrCl > 30 mL/min) *Enoxaparin/Lovenox 30 mg SQ daily (WT < 150 kg, CrCl > 10-29 mL/min) *Enoxaparin/Lovenox 30 mg SQ BID (WT < 150 kg, CrCl > 30 mL/min) AND *Sequential Compression Device (SCD) Assessment and Plan - Assessment (1) GI bleed Code(s): K92.2 - Gastrointestinal hemorrhage, unspecified Status: Acute Plan: Blood per rectum that started overnight. Patient tachycardic upon admission. Hgb on admission is 8.7. Status post 2 units PRBCs in the ED. H&H's every 6 hours GI consulted, appreciate recommendations -EGD/colonoscopy in the morning -GoLYTELY through G-tube NS at 120 mLs/hour Zofran 4 mg IV every 6 hours as needed for nausea Unable to reach her daughter based on the phone numbers that we had that were all disconnected. Case management had a consult to try to reach a relative or decision maker and were unable to do so. Based on the fact that she had continued bleeding she had 5 bloody stools in the emergency department and she required blood transfusion the colonoscopy is an emergency procedure. If she has a diverticuli or an AVM that could be treated and the bleeding could be stopped then she can have a good recovery. (2) Conjunctivitis Code(s): H10.9 - Unspecified conjunctivitis Status: Acute Plan: Conjunctivitis of the right eye. 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 Per [facility] nursing staff it is to be cleaned once a month. -Erythromycin ophthalmic ointment QID Improved since admission. (3) COPD (chronic obstructive pulmonary disease) Code(s): J44.9 - Chronic obstructive pulmonary disease, unspecified Status: Chronic Plan: Continue at home medications: -Albuterol nebs -Symbicort inhaler (4) HTN (hypertension) Code(s): I10 - Essential (primary) hypertension Status: Chronic Plan: Continue at home medications: -Amlodipine 10 mg G-tube daily -Metoprolol 25 mg G-tube daily (5) Dementia Code(s): F03.90 - Unspecified dementia without behavioral disturbance Status: Chronic Plan: Patient with history of dementia. Unable to give consent for procedure tomorrow. Will likely be done as emergently. Patient on risperidone 0.5 mg G-tube twice daily and melatonin 5 mg p.o. at bedtime for sleep Unsure of the exact type of dementia she does have a little tremor in her hands bilaterally especially her thumbs that is suggestive of Parkinson's but I do not see a tremor elsewhere at her age the most common dementia is Alzheimer's however I do not have her records or any way to make a quick determination of this. (6) Normocytic anemia Code(s): D64.9 - Anemia, unspecified Status: Chronic Plan: CBC reveals a normocytic anemia. Likely from acute blood loss. However, this seems to be chronic for her as her hemoglobin in August was 8.9. Her last creatinine was WNL so likely not from chronic kidney disease. -Continue to monitor (7) Nutrition, metabolism, and development symptoms Code(s): R63.8 - Other symptoms and signs concerning food and fluid intake Status: Acute Plan: Fluids: NS @ 120ml/hr Electrolytes: monitor and replete as needed Nutrition: Will restart regular nutrition schedule tomorrow after procedure. Patient receives most of her nutrition through her G-tube and only gets p.o. for pleasure foods (i.e. pudding). Schedule is Jevity 1.5 at 79 mL/hour off 3 PM on at 9 PM. 210 mL's of water every 4 hours and 30 mL's in between each medication. GI Prophylaxis: Protonix 40 mg IV daily (8) DVT prophylaxis Status: Acute Plan: DVT Prophylaxis: Early ambulation. bilateral SCDs - Assessment and Plan 77-year-old -[place] female with PMH of COPD, dementia, hypertension, glaucoma admitted for GI bleed. GI is consulted. Planning for EGD/colonoscopy on tomorrow. (1) GI bleed Qualifiers: GI bleed type/associated pathology: unspecified gastrointestinal hemorrhage type Qualified Code(s): K92.2 - Gastrointestinal hemorrhage, unspecified (2) Conjunctivitis Qualifiers: Conjunctivitis type: acute Acute conjunctivitis type: unspecified Laterality : right Qualified Code(s): H10.31 - Unspecified acute conjunctivitis, right eye (3) COPD (chronic obstructive pulmonary disease) Qualifiers: COPD type: unspecified COPD Qualified Code(s): J44.9 - Chronic obstructive pulmonary disease, unspecified (4) HTN (hypertension) Qualifiers: Hypertension type: essential hypertension Qualified Code(s): I10 - Essential (primary) hypertension (5) Dementia Qualifiers: Dementia type: unspecified type
[2018-03-11] MEDS ORDERED: Lidocaine PF 1% Inj 5 ML Syringe INFILTRATN ONE (12:00)
[2018-03-11] MEDS ORDERED: Phenylephrine/NS 1000 MCG/10ML Syringe IV.PUSH ONE (12:00)
--- NOTE | 2018-03-11 13:51 | P.PCN ---
Date of procedure: 03/11/18 Pre-op diagnosis: GI bleed, anemia Procedure: PROCEDURE PERFORMED EGD followed by a colonoscopy INDICATION FOR PROCEDURE GI bleed, anemia PROCEDURE: The procedure, risks and benefits were discussed with Patient/POA and informed consent was obtained. Anesthesia sedated Patient with Diprivan. Patient was placed in the left lateral decubitus position. EGD: The Pentax videoscope was introduced through the oropharynx and advanced to the second portion of the duodenum under direct visualization. Retroflexion was performed in the stomach. FINDINGS: The esophagus there was a mild Schatzki ring at the GE junction otherwise unremarkable esophagus The stomach there was a small hiatal hernia otherwise gastric mucosa was unremarkable The duodenum this was normal Colonoscopy: The Pentax videoscope was introduced through the rectum and advanced to cecum where the ileocecal valve and appendiceal orifice were identified. Retroflexion was performed in the rectum. Colonic prep was fair FINDINGS: Colonic withdrawal time greater than 6 minutes. As the scope was slowly withdrawn colonic mucosa was carefully inspected evidence of blood was noted throughout the colon but there was no active bleeding the patient was noted to have scattered diverticulosis throughout the colon otherwise colonic mucosa was unremarkable so is retroflexion and rectal examination ESTIMATED BLOOD LOSS: None SPECIMENS REMOVED: None COMPLICATIONS: None IMPRESSION: Small Schatzki ring Small hiatal hernia Diffuse diverticulosis PLAN: Continue with current supportive care Monitor labs and transfuse if needed If any active bleeding I would suggest a bleeding scan so as to localize the area of bleeding the patient most likely bled from the diverticulosis but unfortunately she has diffuse diverticulosis throughout the colon Anesthesia: ALLYSSA Surgeon: Luiz Wright Condition: stable Disposition: floor
[2018-03-11 19:45] LABS: Hematocrit 31.9 % (35.0-46.0); Hemoglobin 10.3 gm/dL (11.6-15.3)
[2018-03-11] MEDS: Melatonin 5 MG Tablet PO SCH (20:57)
[2018-03-12 00:27] VITALS: PULSE 93
[2018-03-12] MEDS: Sod Chloride 0.9% Inj 1,000 ML IV.CONT SCH (03:55)
[2018-03-12 07:23] LABS: Baso # (Auto) 0.1 th/mm3 (0.0-0.2); Baso % (Auto) 0.7 % (0.0-2.0); Eos # (Auto) 0.3 th/mm3 (0.0-0.4); Eos % (Auto) 2.4 % (0.0-4.0); Hemoglobin 9.8 gm/dL (11.6-15.3); Lymph # (Auto) 1.6 th/mm3 (1.0-4.8); Lymph % (Auto) 13.2 % (9.0-44.0); Mean Corpuscular HGB Conc 32.5 % (32.0-36.0); Mean Corpuscular Hemoglobin 28.1 pg (27.0-34.0); Mean Corpuscular Volume 86.4 fL (80.0-100.0); Mean Platelet Volume 9.2 fL (7.0-11.0); Mono # (Auto) 0.6 th/mm3 (0.0-0.9); Mono % (Auto) 4.8 % (0.0-8.0); Neut # (Auto) 9.4 th/mm3 (1.8-7.7); Neut % (Auto) 78.9 % (16.0-70.0); Platelet Count 214 th/mm3 (150-450); Red Blood Count 3.47 mil/mm3 (4.00-5.30); White Blood Count 11.9 th/mm3 (4.0-11.0)
[2018-03-12 07:56] LABS: Anion Gap 9 meq/L (5-15); Blood Urea Nitrogen 13 mg/dL (7-18); Calcium 7.9 mg/dL (8.5-10.1); Carbon Dioxide 25.6 meq/L (21.0-32.0); Chloride 107 meq/L (98-107); Glomerular Filtration Rate Greater Than 89 mL/min (>89); Glucose,Random 113 mg/dL (74-106); Potassium 4.1 meq/L (3.5-5.1); Sodium 142 meq/L (136-145)
[2018-03-12 08:21] VITALS: BP 152/94; RESP 19; TEMP 97.7; O2SAT 98
[2018-03-12] MEDS: Pantoprazole Inj 40 MG Vial IV.PUSH SCH (08:26)
[2018-03-12] MEDS: Budesonide-Formoterol 160/4.5 MCG 6 GM Inhaler INH SCH (08:26)
[2018-03-12] MEDS: Metoprolol Tartrate 25 MG Tablet G-TUBE SCH (08:26)
[2018-03-12] MEDS: Erythromycin 0.5% Opth Oint 3.5 GM Tube RIGHT EYE SCH (08:26)
[2018-03-12] MEDS: amLODIPine 10 MG Tablet G-TUBE SCH (08:26)
--- NOTE | 2018-03-12 09:42 | P.PNFP ---
Subjective Interval history: Pt doing well today, she has no complains. She does not like her feet to be examined. To the best of her ability, she communicated she would like to go home. She denies any pain, any shortness of breath, but said yes when asked if she thinks she needs a breathing treatment, due to lung exam. <KeeshaMeagan Corbett V - 03/12/18 13:00> Results - Labs Result diagrams: 03/12/18 06:20 03/12/18 06:20 <Apurva Case M - 03/13/18 13:05> Abnormal lab results 03/11/18 03/12/18 03/12/18 Range/Units 18:58 06:20 06:20 WBC 11.9 H (4.0-11.0) th/mm3 RBC 3.47 L (4.00-5.30) mil/mm3 Hgb 10.3 L 9.8 L (11.6-15.3) gm/dL Hct 31.9 L 30.0 L (35.0-46.0) % Neut % (Auto) 78.9 H (16.0-70.0) % Neut # (Auto) 9.4 H (1.8-7.7) th/mm3 Random Glucose 113 H (74-106) mg/dL Calcium 7.9 L (8.5-10.1) mg/dL Short CBC 03/11/18 03/12/18 Range/Units 18:58 06:20 WBC 11.9 H (4.0-11.0) th/mm3 Hgb 10.3 L 9.8 L (11.6-15.3) gm/dL Hct 31.9 L 30.0 L (35.0-46.0) % Plt Count 214 (150-450) th/mm3 BMP 03/12/18 06:20 Sodium 142 Potassium 4.1 Chloride 107 Carbon Dioxide 25.6 BUN 13 Creatinine 0.72 Calcium 7.9 L <Keesha Meagan Cortez V - 03/12/18 09:42> Physical Exam Vital signs: Intake & Output 03/12/18 03/13/18 03/13/18 18:59 06:59 18:59 Intake Total 230 / 230 Balance 230 / 230 Intake: IV 230 / 230 Other: Date of Last Bowel Movement 03/10/18 <Apurva Case M - 03/13/18 13:05> Vital Signs 03/11/18 12:00 03/11/18 13:43 03/11/18 13:53 Temperature 97.9 F 97.6 F Pulse Rate 84 92 H 91 H Respiratory Rate 18 20 18 Blood Pressure 107/80 119/68 118/64 Pulse Oximetry 93 L 95 95 03/11/18 16:00 03/11/18 18:42 03/11/18 20:00 Temperature 97.3 F L 98.7 F Pulse Rate 96 H 103 H Respiratory Rate 17 22 Blood Pressure 152/72 H 157/64 H Pulse Oximetry 100 99 94 L 03/11/18 20:39 03/12/18 00:00 03/12/18 08:00 Temperature 97.9 F 97.7 F Pulse Rate 93 H 93 H Respiratory Rate 22 19 Blood Pressure 151/62 H 152/94 H Pulse Oximetry 100 94 L 98 Intake & Output 03/11/18 03/12/18 03/12/18 18:59 06:59 18:59 Intake Total 1020 / 1020 2000 / 2000 230 / 230 Output Total 1350 / 1350 Balance 1020 / 1020 650 / 650 230 / 230 Weight 84.6 kg Intake: IV 1020 / 1020 2000 / 2000 230 / 230 NS Inj 1,000 ML @ 120 mls/hr IV 1000 / 1000 2000 / 2000 .CONT .Q8H20M MONIE Rx#:[id number] NS Inj 250 ML @ 15 mls/hr IV. 20 / 20 SIG ONCE MONIE Rx#:[id number] Output: Urine 1350 / 1350 <Keesha CortezJesusita - 03/12/18 09:42> Narrative: GENERAL: Obese patient, laying in bed in NAD. SKIN: Warm and dry. HEAD: Normocephalic and atraumatic. EYES: No scleral icterus. No injection. 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 ENT: No nasal drainage noted. Airway patent. NECK: Supple, trachea midline. No JVD. CARDIOVASCULAR: Regular rate and rhythm without murmurs, gallops, or rubs. RESPIRATORY: Breath sounds equal bilaterally. No accessory muscle use. Wheezing with expiration in bilateral lung shepherd. ABDOMEN/GI: Abdomen soft, non-tender, bowel sounds present, no rebound, no guarding EXTREMITIES: Unable to examine. NEUROLOGICAL: Awake and alert. Normal speech. limited answers to questions due to dementia <Meagan Almazan V - 03/12/18 13:00> Assessment and Plan - Assessment (1) GI bleed Code(s): K92.2 - Gastrointestinal hemorrhage, unspecified Status: Acute (2) Conjunctivitis Code(s): H10.9 - Unspecified conjunctivitis Status: Acute (3) COPD (chronic obstructive pulmonary disease) Code(s): J44.9 - Chronic obstructive pulmonary disease, unspecified Status: Chronic (4) HTN (hypertension) Code(s): I10 - Essential (primary) hypertension Status: Chronic (5) Dementia Code(s): F03.90 - Unspecified dementia without behavioral disturbance Status: Chronic (6) Normocytic anemia Code(s): D64.9 - Anemia, unspecified Status: Chronic (7) Nutrition, metabolism, and development symptoms Code(s): R63.8 - Other symptoms and signs concerning food and fluid intake Status: Acute (8) DVT prophylaxis Status: Acute <PocahontasApurva pruitt M - 03/13/18 13:05> (1) GI bleed Code(s): K92.2 - Gastrointestinal hemorrhage, unspecified Status: Acute Plan: Blood per rectum that started overnight on 03/09. Patient tachycardic upon admission. Hgb on admission is 8.7. Status post 2 units PRBCs in the ED. EGD 03/11 w/ Small Schatzki ring, and Small hiatal hernia Colonoscopy w/ Diffuse diverticulosis and no acute bleeding. GI recommendations for future treatment: If any active bleeding I would suggest a bleeding scan so as to localize the area of bleeding the patient most likely bled from the diverticulosis but unfortunately she has diffuse diverticulosis throughout the colon . (2) Conjunctivitis Code(s): H10.9 - Unspecified conjunctivitis Status: Acute Plan: Conjunctivitis of the right eye. 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 Per [facility] nursing staff it is to be cleaned once a month. -Erythromycin ophthalmic ointment QID Improved since admission. Will discharge to [facility] with prescription for Erythromycin ointment. (3) COPD (chronic obstructive pulmonary disease) Code(s): J44.9 - Chronic obstructive pulmonary disease, unspecified Status: Chronic Plan: Continue at home medications: -Albuterol nebs -Symbicort inhaler Wheezing on exam today. Will do a breathing treatment before being discharged. (4) HTN (hypertension) Code(s): I10 - Essential (primary) hypertension Status: Chronic Plan: Continue at home medications: -Amlodipine 10 mg G-tube daily -Metoprolol 25 mg G-tube daily (5) Dementia Code(s): F03.90 - Unspecified dementia without behavioral disturbance Status: Chronic Plan: Patient with history of dementia. Unable to give consent for procedure tomorrow. Will likely be done as emergently. Patient on risperidone 0.5 mg G-tube twice daily and melatonin 5 mg p.o. at bedtime for sleep Unsure of the exact type of dementia she does have a little tremor in her hands bilaterally especially her thumbs that is suggestive of Parkinson's but I do not see a tremor elsewhere at her age the most common dementia is Alzheimer's however I do not have her records or any way to make a quick determination of this. (6) Normocytic anemia Code(s): D64.9 - Anemia, unspecified Status: Chronic Plan: CBC reveals a normocytic anemia. Likely from acute blood loss. However, this seems to be chronic for her as her hemoglobin in August was 8.9. Her last creatinine was WNL so likely not from chronic kidney disease. -Continue to monitor - Hb today 9.8 (7) Nutrition, metabolism, and development symptoms Code(s): R63.8 - Other symptoms and signs concerning food and fluid intake Status: Acute Plan: Fluids: No IV fluids at this time. Only G tube Electrolytes: monitor and replete as needed Nutrition: Patient receives most of her nutrition through her G-tube and only gets p.o. for pleasure foods (i.e. pudding). Schedule is Jevity 1.5 at 79 mL/hour off 3 PM on at 9 PM. 210 mL's of water every 4 hours and 30 mL's in between each medication. GI Prophylaxis: Protonix 40 mg IV daily (8) DVT prophylaxis Status: Acute Plan: DVT Prophylaxis: Early ambulation. bilateral SCDs <Keesha CortezMeaganJesusita - 03/12/18 12:48> - Assessment and Plan 77-year-old -Finnish female with PMH of COPD, dementia, hypertension, glaucoma admitted for GI bleed. EGD/colonoscopy revealed diffuse diverticulosis as the possible source of bleeding, but not active bleeding at the time. Pt is stable and will be discharged back to SNF. Pt seen and discussed with Dr. Case <Meagan Almazan V - 03/12/18 13:00> - Attending Attestation The exam, history, and the medical decision-making described in the above note were completed with the assistance of the resident physician. I reviewed and agree with the findings presented. I attest that I had a [id number] encounter with the patient on the same day, and personally performed and documented my assessment and findings in the medical record. She is stable and at her baseline and fortunately does not have any acute bleeding seen on colonoscopy so she will [facility] back [facility]. <Apurva Case - 03/13/18 13:05> <Meagan Almazan V - Last Filed: 03/12/18 12:48> (1) GI bleed Qualifiers: GI bleed type/associated pathology: unspecified gastrointestinal hemorrhage type Qualified Code(s): K92.2 - Gastrointestinal hemorrhage, unspecified (2) Conjunctivitis Qualifiers: Conjunctivitis type: acute Acute conjunctivitis type: unspecified Laterality : right Qualified Code(s): H10.31 - Unspecified acute conjunctivitis, right eye (3) COPD (chronic obstructive pulmonary disease) Qualifiers: COPD type: unspecified COPD Qualified Code(s): J44.9 - Chronic obstructive pulmonary disease, unspecified (4) HTN (hypertension) Qualifiers: Hypertension type: essential hypertension Qualified Code(s): I10 - Essential (primary) hypertension (5) Dementia Qualifiers: Dementia type: unspecified type <Apurva Case - Last Filed: 03/13/18 13:05> (1) GI bleed Qualifiers: GI bleed type/associated pathology: unspecified gastrointestinal hemorrhage type Qualified Code(s): K92.2 - Gastrointestinal hemorrhage, unspecified (2) Conjunctivitis Qualifiers: Conjunctivitis type: acute Acute conjunctivitis type: unspecified Laterality : right Qualified Code(s): H10.31 - Unspecified acute conjunctivitis, right eye (3) COPD (chronic obstructive pulmonary disease) Qualifiers: COPD type: unspecified COPD Qualified Code(s): J44.9 - Chronic obstructive pulmonary disease, unspecified (4) HTN (hypertension) Qualifiers: Hypertension type: essential hypertension Qualified Code(s): I10 - Essential (primary) hypertension (5) Dementia Qualifiers: Dementia type: unspecified type <Meagan Almazan V - Last Filed: 03/12/18 12:48> (1) GI bleed Qualifiers: GI bleed type/associated pathology: unspecified gastrointestinal hemorrhage type Qualified Code(s): K92.2 - Gastrointestinal hemorrhage, unspecified (2) Conjunctivitis Qualifiers: Conjunctivitis type: acute Acute conjunctivitis type: unspecified Laterality : right Qualified Code(s): H10.31 - Unspecified acute conjunctivitis, right eye (3) COPD (chronic obstructive pulmonary disease) Qualifiers: COPD type: unspecified COPD Qualified Code(s): J44.9 - Chronic obstructive pulmonary disease, unspecified (4) HTN (hypertension) Qualifiers: Hypertension type: essential hypertension Qualified Code(s): I10 - Essential (primary) hypertension (5) Dementia Qualifiers: Dementia type: unspecified type <ManpreetRonApurva M - Last Filed: 08/26/18 13:05> (1) GI bleed Qualifiers: GI bleed type/associated pathology: unspecified gastrointestinal hemorrhage type Qualified Code(s): K92.2 - Gastrointestinal hemorrhage, unspecified (2) Conjunctivitis Qualifiers: Conjunctivitis type: acute Acute conjunctivitis type: unspecified Laterality : right Qualified Code(s): H10.31 - Unspecified acute conjunctivitis, right eye (3) COPD (chronic obstructive pulmonary disease) Qualifiers: COPD type: unspecified COPD Qualified Code(s): J44.9 - Chronic obstructive pulmonary disease, unspecified (4) HTN (hypertension) Qualifiers: Hypertension type: essential hypertension Qualified Code(s): I10 - Essential (primary) hypertension (5) Dementia Qualifiers: Dementia type: unspecified type
--- NOTE | 2018-03-12 13:10 | P.DS ---
Date of admission: 03/10/18 10:27 Primary care physician: Noman Yu MD Brief History from admission: This is a 77-year-old -[place] female with a past medical history of COPD retention, glaucoma, dementia presenting to the ED with bloody stools. Patient states that she was in the long term and then brought to the hospital. She was unable to say why she is here. She states that she has no abdominal pain, she is eating and drinking okay, goes to the bathroom by herself. She states that her stool is brown, no signs of blood, no diarrhea. According to the long term staff at [facility] she is usually incontinent of stool. Nursing noticed last night that she had bloody stools while changing her , probably 1 or 2. 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 ED nursing staff-patient was gushing maroon colored stools while in the ED she had to be changed 5 times. Tried to contact pt's daughter, Deborah Segura, at [phone] and [phone], but both numbers are out of service. [facility] also tried to contact daughter at these numbers, but were also unsuccessful. PMH: pt denies any According to [facility] records patient has: COPD Hypertension Glaucoma Muscle weakness Gout Cognitive communication deficit Alzheimer's disease Insomnia Difficulty walking Dysphasia, oropharyngeal phase Behavioral disturbance Anxiety disorder Rheumatoid arthritis PSH: pt denies Social hx: Unable to tell name of long term stated that she does not have any children, later she stated that her daughter' s name was also Shasha Vines denies tobacco, alcohol, or illicit drug use DS: Diagnosis - Discharge Diagnosis (1) GI bleed Status: Acute (2) Conjunctivitis Status: Acute (3) COPD (chronic obstructive pulmonary disease) Status: Chronic (4) HTN (hypertension) Status: Chronic (5) Dementia Status: Chronic (6) Normocytic anemia Status: Chronic (7) Nutrition, metabolism, and development symptoms Status: Acute (8) DVT prophylaxis Status: Acute DS: Medications - Discharge Medications Prescriptions: erythromycin 1 applicatio RIGHT EYE QID #7 g DS: Summary Hospital Course: Ms. Vines is a 77-year-old female with past medical history of dementia, COPD, hypertension, who presented to the emergency department with an acute GI bleed. Patient resides in it intermediate facility. Tonight she had noted that she had had a bowel movement maroon colored looking like there was blood in it. On 03/10 patient arrived to emergency department in the morning, he was noted to have between 5 and 6 more bloody movements, bowel movements where very watery. On exam blood was observed on her diaper. Patient is incontinent of stool. Patient mental status of dementia made it very difficult to obtain a clear history. Attempted to contact her daughter several times without success. During her ED stay 2 units of packed red blood cells were transfused due to acute bleed. GI was consulted and an emergency EGD and colonoscopy were scheduled for the following day. EGD remarkable only for Small Schatzki ring, and Small hiatal hernia. Colonoscopy positive for diffuse diverticulitis, no acute bleed identified. Patient is stable and will be discharged back to the nursing facility where she resides. In case of future GI bleeding GI suggests a bleeding scan to localize the area of bleeding that the patient most likely bled from diverticulosis but it is difficult to pinpoint due to diffuse diverticulosis throughout the colon. On a side note, patient noted to have from her right eye. While obtaining information from the long term we were informed patient has a fake right eye, that many times looks infected. This was treated with erythromycin ointment and has improved significantly since admission. Patient will be discharge with a prescription to continue erythromycin ointment on her right eye. Due to this acute bleed we recommend to stop taking her current medication meloxicam for at least 1 week, or until consulted with long term physician and okay to continue taking. - Time Spent with Patient Total time spent providing and/or coordinating discharge services: Less than 30 minutes - Quality: VTE Contraindication No VTE Prophylaxis: Complication of medical care (Acute GI bleed) Exam Vital signs: Vital Signs 03/11/18 13:43 03/11/18 13:53 03/11/18 16:00 Temperature 97.6 F 97.3 F L Pulse Rate 92 H 91 H 96 H Respiratory Rate 20 18 17 Blood Pressure 119/68 118/64 152/72 H Pulse Oximetry 95 95 100 03/11/18 18:42 03/11/18 20:00 03/11/18 20:39 Temperature 98.7 F Pulse Rate 103 H Respiratory Rate 22 Blood Pressure 157/64 H Pulse Oximetry 99 94 L 100 03/12/18 00:00 03/12/18 08:00 Temperature 97.9 F 97.7 F Pulse Rate 93 H 93 H Respiratory Rate 22 19 Blood Pressure 151/62 H 152/94 H Pulse Oximetry 94 L 98 Intake & Output 03/11/18 03/12/18 03/12/18 18:59 06:59 18:59 Intake Total 1020 / 1020 2000 / 1999 230 / 230 Output Total 1350 / 1350 Balance 1020 / 1020 650 / 650 230 / 230 Weight 84.6 kg Intake: IV 1020 / 1020 1999 / 1999 230 / 230 NS Inj 1,000 ML @ 120 mls/hr IV 1000 / 1000 1999 / 1999 .CONT .Q8H20M MONIE Rx#:[id number] NS Inj 250 ML @ 15 mls/hr IV. 20 / 20 SIG ONCE MONIE Rx#:[id number] Output: Urine 1350 / 1350 Other: Date of Last Bowel Movement 03/10/18 03/10/18 Narrative: GENERAL: Obese patient, laying in bed in NAD. SKIN: Warm and dry. HEAD: Normocephalic and atraumatic. EYES: No scleral icterus. No injection. 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 ENT: No nasal drainage noted. Airway patent. NECK: Supple, trachea midline. No JVD. CARDIOVASCULAR: Regular rate and rhythm without murmurs, gallops, or rubs. RESPIRATORY: Breath sounds equal bilaterally. No accessory muscle use. Wheezing with expiration in bilateral lung shepherd. ABDOMEN/GI: Abdomen soft, non-tender, bowel sounds present, no rebound, no guarding EXTREMITIES: Unable to examine. NEUROLOGICAL: Awake and alert. Normal speech. limited answers to questions due to dementia Results Procedures completed during hospitalization: EGD, Colonoscopy Labs on day of discharge: Labs from last 24 hours 03/12/18 03/12/18 03/11/18 06:20 06:20 18:58 WBC 11.9 H RBC 3.47 L Hgb 9.8 L 10.3 L Hct 30.0 L 31.9 L MCV 86.4 MCH 28.1 MCHC 32.5 RDW 17.0 Plt Count 214 MPV 9.2 Neut % (Auto) 78.9 H Lymph % (Auto) 13.2 Haakon % (Auto) 4.8 Eos % (Auto) 2.4 Baso % (Auto) 0.7 Neut # (Auto) 9.4 H Lymph # (Auto) 1.6 Haakon # (Auto) 0.6 Eos # (Auto) 0.3 Baso # (Auto) 0.1 WBC Differential . Differential Comment Auto diff final Sodium 142 Potassium 4.1 Chloride 107 Carbon Dioxide 25.6 Anion Gap 9 BUN 13 Creatinine 0.72 Estimated GFR Greater than 89 Random Glucose 113 H Calcium 7.9 L - Impressions ITS Impressions Chest X-Ray 03/10/18 08:30 CONCLUSION: 1. No free air is visualized. There is mild atelectasis at the lung bases related to the under inflation. 2. Severe left glenohumeral joint osteoarthritis. Discharge Plan - Discharge Disposition Patient Disposition: 03 Discharge to SNF - Discharge Condition Condition: Good - Discharge Order Discharge Orders: Discharge Order (Routine); Ordered 03/12/18 Ordered By: Meagan Cortez - Discharge Details Anticipated Discharge Date: 03/10/18 - Physicians Team Primary Care Provider: Noman Yu Attending Provider: Apurva Case Other Providers: Luiz Wright MD ; [facility] [address] & [facility],Agency
--- NOTE | 2018-03-12 17:47 | ECG ---
Date Performed: 03/10/2018 Time Performed: 10:04:04 PTAGE: 77 years EKG: Sinus rhythm POSSIBLE LEFT ATRIAL ENLARGEMENT LOW QRS VOLTAGE IN PRECORDIAL LEADS SEPTAL MYOCARDIAL INFARCTION AB NORMAL ECG NO PREVIOUS TRACING DOCTOR: Obey Pate Interpretating Date/Time 03/12/2018 17:39:58
== END 2018-03-12 13:32 ==
LOC: NEPC 08:19 → NEDA 10:27 → N07 17:20
PROVIDERS: ADMIT Family Medicine; ATTEND Family Medicine
PROC: PANENDO (2018-03-11 12:00)
PROC: COLONOS (2018-03-11 12:00)